=== PATIENT | female | born 1940 | race Caucasian/White ===

== ENCOUNTER 2019-05-27 16:48 | Inpatient (IN) | payer MEDICARE, OTHER ==
[~2019-05-27] VITALS: Ht 149.9 cm; Wt 71.2 kg
[2019-05-27] VITALS (23 sets, daily range): BP systolic 75–147; BP diastolic 32–101
[2019-05-27] MEDS ORDERED: IV NORMAL SALINE 1,000ML 1,000 ML IV SCH (17:01)
--- NOTE | 2019-05-27 17:19 | PHYS DOC ---
Past History Past Medical History: Arthritis, Depression, Hypertension, Hypothyroid, Other Additional Past Medical Histor: maligant neoplasm of breast Past Surgical History: Appendectomy, Cholecystectomy, Tonsillectomy, Other Additional Past Surgical Histo: bariatric surgery; partial right mastectomy Additional Alcohol Information: glass wine with dinner Drug Use: None Social History Narrative: hx of THC use Adult General Chief Complaint Chief Complaint: RAPID HEART RATE HPI HPI Patient is an 79-year-old female who resents with complaint of palpitations that started earlier today. She states that she has been having some intermittent palpitations over the last week or so. She states that today it was more severe and she was feeling lightheaded. Patient states that she went home from gym where she was feeling the palpitations and checked her heart rate and found it to be in the 120s. She states that she then went to see her doctor. Her provider had performed an EKG and sent patient as the emergency room. She denies any chest pain but does admit to the palpitations, stating that it feels like her heart rate is rapid. She admits to lightheadedness. She denies any shortness of breath. She also denies any fever.[] Review of Systems Review of Systems Constitutional: Denies fever or chills [] Respiratory: Denies cough or shortness of breath [] Cardiovascular: No additional information not addressed in HPI [] GI: Denies abdominal pain, nausea, vomiting, bloody stools or diarrhea [] Integument: Denies rash or skin lesions [] Neurologic: Denies headache, focal weakness or sensory changes [] All other systems were reviewed and found to be within normal limits, except as documented in this note. Current Medications Current Medications Current Medications Medications (Trade) Dose Ordered Sig/Mingo Start Time Stop Time Status Last Admin Dose Admin Diltiazem HCl (Cardizem Iv Push) 10 mg 1X ONCE 05/27/19 17:30 05/27/19 17:31 Sodium Chloride 1,000 ml @ 1,000 mls/hr Q1H 05/27/19 17:01 05/27/19 18:00 Allergies Allergies Allergies Coded Allergies Type Severity Reaction Last Updated Verified No Known Drug Allergies 05/27/19 No Physical Exam Physical Exam Constitutional: Well developed, well nourished, no acute distress, non-toxic appearance. [] HENT: Normocephalic, atraumatic, bilateral external ears normal, oropharynx moist, no oral exudates, nose normal. [] Eyes: PERRLA, EOMI, conjunctiva normal, no discharge. [] Neck: Normal range of motion, no tenderness, supple, no stridor. [] Cardiovascular: Markedly tachycardic rate with irregular rhythm[] Lungs & Thorax: Bilateral breath sounds clear to auscultation [] Abdomen: Bowel sounds normal, soft, no tenderness. [] Skin: Warm, dry, no erythema, no rash. [] Extremities: No tenderness, no cyanosis, no clubbing, ROM intact, no edema. [] Neurologic: Alert and oriented X 3, no focal deficits noted. [] Current Patient Data Vital Signs Vital Signs Date Time Temp Pulse Resp B/P (MAP) Pulse Ox O2 Delivery O2 Flow Rate FiO2 05/27/19 16:57 98.5 143 17 96 Room Air EKG EKG EKG demonstrates atrial fibrillation with rapid ventricular response with rate of 133.[] Radiology/Procedures Radiology/Procedures [] Course & Med Decision Making Course & Med Decision Making Pertinent Labs and Imaging studies reviewed. (See chart for details) [] Dragon Disclaimer Dragon Disclaimer This electronic medical record was generated, in whole or in part, using a voice recognition dictation system. Departure Departure: Impression: Primary Impression: Atrial fibrillation with rapid ventricular response Disposition: ADMITTED INPATIENT Admitting Physician: Timur Garcia Condition: IMPROVED Referrals: NEREIDA DE LA ROSA MD (PCP) CAREY DAWSON Jr. DO May 27, 2019 17:19
[2019-05-27 17:26] LABS: BASO # 0.1 x10^3/uL (0.0-0.2); BASO % 1 % (0-3); EOS # 0.2 x10^3/uL (0.0-0.7); EOS % 4 % (0-3); HEMATOCRIT 38.5 % (36.0-47.0); HEMOGLOBIN 12.9 g/dL (12.0-15.5); LYMPH # 1.7 x10^3/uL (1.0-4.8); LYMPH % 29 % (24-48); MEAN CORPUSCULAR HEMOGLOBIN 32 pg (25-35); MEAN CORPUSCULAR HGB CONC 34 g/dL (31-37); MEAN CORPUSCULAR VOLUME 96 fL (79-100); MONO # 0.7 x10^3/uL (0.0-1.1); MONO % 12 % (0-9); NEUT # 3.2 x10^3uL (1.8-7.7); NEUT % 55 % (31-73); PLATELET COUNT 211 x10^3/uL (140-400); RED BLOOD COUNT 3.99 x10^6/uL (3.50-5.40); WHITE BLOOD COUNT 5.9 x10^3/uL (4.0-11.0)
[2019-05-27] MEDS ORDERED: dilTIAZem 25 MG/5 ML VIAL IVP ONE ×2 (17:30→18:00)
[2019-05-27] MEDS ORDERED: IV NORMAL SALINE 100ML 100 ML ONE (17:36)
[2019-05-27 17:45] LABS: ALBUMIN 3.2 g/dL (3.4-5.0); ALBUMIN/GLOBULIN RATIO 0.9 (1.0-1.7); CALCIUM 8.6 mg/dL (8.5-10.1); CREATININE 0.9 mg/dL (0.6-1.0); GFR 60.2; MAGNESIUM 1.8 mg/dL (1.8-2.4); POTASSIUM 4.2 mmol/L (3.5-5.1); TOTAL BILIRUBIN 0.8 mg/dL (0.2-1.0); TOTAL PROTEIN 6.8 g/dL (6.4-8.2)
[2019-05-27] MEDS ORDERED: dilTIAZem VIAL 125 MG in IV DEXTROSE 5% 100 ML IV ONE (18:00)
--- NOTE | 2019-05-27 18:00 | RAD ---
Exam: Chest one view INDICATION: Palpitations TECHNIQUE: Frontal view of the chest Comparisons: None FINDINGS: The cardiomediastinal silhouette and pulmonary vessels are within normal limits. The lung and pleural spaces are clear. IMPRESSION: No acute cardiopulmonary process. Electronically signed by: Grisel Mares MD (05/27/2019 5:57 PM) [facility]
[2019-05-27] MEDS ORDERED: IV DEXTROSE 5% 100 ML IV ONE (18:03)
[2019-05-27 18:12] LABS: BILIRUBIN,URINE NEG (NEG); CLARITY,URINE CLEAR; COLOR,URINE YELLOW; GLUCOSE,URINE NEG (NEG)
[2019-05-27 18:13] LABS: BACTERIA,URINE 0 /HPF (0-FEW); NITRITE,URINE NEG (NEG); SQUAMOUS EPITHELIAL CELL,UR OCC /LPF; UROBILINOGEN,URINE 0.2 mg/dL (0.2 mg/dL); WBC,URINE OCC /HPF (0-4)
[2019-05-27] MEDS ORDERED: MULT1TAB52 PO (19:52)
[2019-05-27] MEDS ORDERED: LEVO100T5 PO (19:52)
[2019-05-27] MEDS ORDERED: UBID100C26 PO (19:52)
[2019-05-27] MEDS ORDERED: CETI10TA22 PO (19:52)
[2019-05-27] MEDS ORDERED: IRON1TAB2 PO (19:52)
[2019-05-27] MEDS ORDERED: CHOL500016 PO (19:52)
[2019-05-27] MEDS ORDERED: FISH12002 PO (19:52)
[2019-05-27] MEDS ORDERED: CALC0.5C8 PO (19:52)
[2019-05-27] MEDS ORDERED: CALCITONIN-SALMON NAS (19:52)
[2019-05-27] MEDS ORDERED: B12/1TAB PO (19:52)
[2019-05-27] MEDS ORDERED: FLUO40CA9 PO (19:52)
[2019-05-28] VITALS (36 sets, daily range): BP systolic 90–131; BP diastolic 40–85
--- NOTE | 2019-05-28 04:02 | EKG ---
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
[2019-05-28] MEDS: dilTIAZem VIAL 125 MG in IV DEXTROSE 5% 100 ML IV PRN ×2 (05:06→17:43)
[2019-05-28] MEDS: APIXABAN 2.5 MG TABLET PO SCH ×2 (13:22→20:32)
--- NOTE | 2019-05-28 14:11 | PDOC2 ---
CONSULT Date of Admission DATE: 05/28/19 TIME: 14:11 Reason for Consult: Atrial fibrillation Referring Physician: Dr. Garcia Chief Complaint Palpitations Source: Chart review, Patient Problem List Problems Medical Problems: (1) Atrial fibrillation with rapid ventricular response Status: Acute History of Present Illness 79-year-old female presented with intermittent episodes of palpitations for the last one to two weeks. She was found to be in atrial fibrillation with rapid ventricular response at PCPs office and admitted for further management. She stated that she felt lightheaded yesterday prior to presentation but denied any chest pain, orthopnea/PND or elana syncope. She denied any previous history of cardiac arrhythmias. Past Medical History Hypertension Hypothyroidism Depression Osteoarthritis Past Surgical History Appendectomy Cholecystectomy Tonsillectomy Bariatric surgery Mastectomy Family History Negative for premature coronary disease Social History Patient admitted to social intake of wine but denied any smoking or drug abuse Current Medications Current Medications Diltiazem HCl (Cardizem Iv Push) 10 mg 1X ONCE IVP Last administered on 05/27/19at 17:16; Start 05/27/19 at 17:30; Stop 05/27/19 at 17:31; Status DC Sodium Chloride 1,000 ml @ 1,000 mls/hr Q1H IV Last administered on 05/27/19at 17:15; Start 05/27/19 at 17:01; Stop 05/27/19 at 18:00; Status DC Sodium Chloride 100 ml @ As Directed STK-MED ONCE .ROUTE ; Start 05/27/19 at 17:36; Stop 05/27/19 at 17:37; Status DC Diltiazem HCl (Cardizem) 125 mg STK-MED ONCE IV ; Start 05/27/19 at 17:37; Stop 05/27/19 at 17:37; Status DC Diltiazem HCl (Cardizem Iv Push) 10 mg 1X ONCE IVP Last administered on 05/27/19at 18:01; Start 05/27/19 at 18:00; Stop 05/27/19 at 18:01; Status DC Diltiazem HCl 125 mg/Dextrose 125 ml @ 5 mls/hr 1X ONCE IV Last administered on 05/27/19at 18:03; Start 05/27/19 at 18:00; Stop 05/28/19 at 18:59 Dextrose 100 ml @ As Directed STK-MED ONCE IV ; Start 05/27/19 at 18:03; Stop 05/27/19 at 18:03; Status DC Diltiazem HCl 125 mg/Dextrose 125 ml @ 5 mls/hr CONT PRN IV SEE I/O RECORD Last administered on 05/28/19at 05:06; Start 05/27/19 at 21:45 Apixaban (Eliquis) 2.5 mg BID PO Last administered on 05/28/19at 13:22; Start 05/28/19 at 13:30 Active Scripts Active Reported Calcitriol 0.5 Mcg Capsule 1 Cap PO DAILYWSUP Coq-10 (Ubidecarenone) 100 Mg Capsule 300 Mg PO DAILYWSUP Zyrtec (Cetirizine Hcl) 10 Mg Tablet 10 Mg PO DAILYWSUP Foltx Tablet (B12/Levomefolate Calcium/B-6) 1 Each Tablet 1 Each PO WEEKLY [place] 3-6-9 1,200 mg Softgel (Fish Oil/Borage/Flax/Om3,6,9#1) 1,200 Mg Capsule 1,200 Mg PO DAILYWSUP Vitamin D3 (Cholecalciferol (Vitamin D3)) 5,000 Unit Tablet 5,000 Unit PO DAILYWSUP Ferralet 90 Dual-Iron Tablet (Iron, Carb & Gluc/Fa/B12/C/Dss) 1 Each Tablet 1 Each PO DAILYWSUP Multivitamins (Multivitamin) 1 Each Tablet 1 Each PO DAILYWSUP Prozac (Fluoxetine Hcl) 40 Mg Capsule 40 Mg PO DAILYWSUP Levothyroxine Sodium 100 Mcg Tablet 100 Mcg PO DAILYAC [Calcitonin-[place]] 200 Spr 200 ANAYELI DAILY Allergies: Coded Allergies: No Known Drug Allergies (Unverified , 05/27/19) PSYCHOLOGICAL ROS: No: Hallucinations Eyes: No: Loss of vision HEENT: No: Epistaxis Respiratory: No: Hemoptysis Cardiovascular: yes: Palpitations; No: Chest Pain Gastrointestinal: No: Vomiting Genitourinary: No: [place] Neurological: YES: Dizziness; No: Seizures Skin: No: Rash General: Alert, Oriented X3 HEENT: Atraumatic, PERRLA Lungs: Clear to auscultation Heart: Other (heart rate is irregular) Abdomen: Soft Extremities: Other (trace edema) Psych/Mental Status: Mood NL VITALS Vital Signs Date Time Temp Pulse Resp B/P (MAP) Pulse Ox O2 Delivery O2 Flow Rate FiO2 05/28/19 14:04 101 20 101/60 (74) 94 Room Air 05/28/19 11:00 98.3 Labs Laboratory Tests Test 05/27/19 17:10 05/27/19 17:40 White Blood Count 5.9 x10^3/uL (4.0-11.0) Red Blood Count 3.99 x10^6/uL (3.50-5.40) Hemoglobin 12.9 g/dL (12.0-15.5) Hematocrit 38.5 % (36.0-47.0) Mean Corpuscular Volume 96 fL (79-100) Mean Corpuscular Hemoglobin 32 pg (25-35) Mean Corpuscular Hemoglobin Concent 34 g/dL (31-37) Red Cell Distribution Width 13.0 % (11.5-14.5) Platelet Count 211 x10^3/uL (140-400) Neutrophils (%) (Auto) 55 % (31-73) Lymphocytes (%) (Auto) 29 % (24-48) Monocytes (%) (Auto) 12 % (0-9) Eosinophils (%) (Auto) 4 % (0-3) Basophils (%) (Auto) 1 % (0-3) Neutrophils # (Auto) 3.2 x10^3uL (1.8-7.7) Lymphocytes # (Auto) 1.7 x10^3/uL (1.0-4.8) Monocytes # (Auto) 0.7 x10^3/uL (0.0-1.1) Eosinophils # (Auto) 0.2 x10^3/uL (0.0-0.7) Basophils # (Auto) 0.1 x10^3/uL (0.0-0.2) Sodium Level 140 mmol/L (136-145) Potassium Level 4.2 mmol/L (3.5-5.1) Chloride Level 107 mmol/L (98-107) Carbon Dioxide Level 23 mmol/L (21-32) Anion Gap 10 (6-14) Blood Urea Nitrogen 29 mg/dL (7-20) Creatinine 0.9 mg/dL (0.6-1.0) Estimated GFR (Cockcroft-Gault) 60.2 BUN/Creatinine Ratio 32 (6-20) Glucose Level 87 mg/dL (70-99) Calcium Level 8.6 mg/dL (8.5-10.1) Magnesium Level 1.8 mg/dL (1.8-2.4) Total Bilirubin 0.8 mg/dL (0.2-1.0) Aspartate Amino Transf (AST/SGOT) 24 U/L (15-37) Alanine Aminotransferase (ALT/SGPT) 25 U/L (14-59) Alkaline Phosphatase 106 U/L (46-116) Troponin I Quantitative < 0.017 ng/mL (0-0.055) CY-Hzw-W-Type Natriuretic Peptide 1878 pg/mL (0-449) Total Protein 6.8 g/dL (6.4-8.2) Albumin 3.2 g/dL (3.4-5.0) Albumin/Globulin Ratio 0.9 (1.0-1.7) Thyroid Stimulating Hormone (TSH) 3.267 uIU/mL (0.358-3.740) Urine Collection Type Void Urine Color Yellow Urine Clarity Clear Urine pH 6.5 Urine Specific [place] 1.015 Urine Protein Neg (NEG-TRACE) Urine Glucose (UA) Neg mg/dL (NEG) Urine Ketones (Stick) Neg mg/dL (NEG) Urine Blood Mod (NEG) Urine Nitrite Neg (NEG) Urine Bilirubin Neg (NEG) Urine Urobilinogen Dipstick 0.2 mg/dL (0.2 mg/dL) Urine Leukocyte Esterase Neg (NEG) Urine RBC 6-10 /HPF (0-2) Urine WBC Occ /HPF (0-4) Urine Squamous Epithelial Cells Occ /LPF Urine Bacteria 0 /HPF (0-FEW) Assessment/Plan 1. Atrial fibrillation with rapid ventricular response, newly diagnosed. Heart rate improving with Cardizem drip. We will titrate for better rate control. Start eliquis for stroke prophylaxis. BNP elevated probably from rapid ventricular response. Chest x-ray and physical exam not consistent with congestive heart failure. Check 2-D echo to assess LV function and Lexiscan nuclear stress test to rule out ischemia probably as an outpatient. Plan for cardioversion in 3-4 weeks as an outpatient. 2. Hypertension: Controlled 3. Hypothyroidism: On levo thyroxine Thank you for your consultation. YOLANDA MCGEE MD May 28, 2019 14:11
--- NOTE | 2019-05-28 15:06 | HP ---
ADMIT DATE: 05/27/2019 HISTORY OF PRESENT ILLNESS: The patient is an 79-year-old female patient who was seen at her primary care physician's office and she started complaining of palpitation that started earlier yesterday morning. She stated that she has been having some intermittent palpitation over the last week or so. She stated that at the day of admission, she has more severe, was feeling lightheaded, but denied any chest pain or shortness of breath. She states she went home from gym where she was feeling palpitation. They checked her heart rate and was found to be high at 125 beats per minute. From there, she went to her primary care physician. Her provider performed an EKG that showed that she was in atrial fibrillation with rapid ventricular response and was sent to the Emergency Room, and she was started on a Cardizem drip and was admitted for further evaluation and treatment. PAST MEDICAL HISTORY: Significant for hyperlipidemia, hypothyroidism, and generalized osteoarthritis. She has also morbid obesity. PAST SURGICAL HISTORY: Significant for cholecystectomy, gastric bypass surgery, appendectomy. She has bilateral cataract extraction, tonsillectomy, partial mastectomy, esophagogastroduodenoscopy, and colonoscopy. ALLERGIES: She has no known drug allergies. MEDICATIONS: She is currently on following medications: She is on cetirizine 10 mg once a day, Ferralet dual-iron tablet 1 tablet once a day with supper, fluoxetine 40 mg daily, levothyroxine sodium 100 mcg once a day, multivitamin tablet once a day, calcitriol 0.5 mcg once a day, cholecalciferol for vitamin D3 5000 international unit once a day, multivitamin 1 tablet once a day, fish oil 1200 mg daily, CoQ10 100 mg daily, and calcitonin salmon 200 mcg nasal spray one spray to each nostril once a day. FAMILY HISTORY: Her sister at age of 70 of breast cancer. She has a half-sister and a half-brother, all healthy. Father at age of 35, apparently committing suicide and mother at age 79 because of lymphoma. SOCIAL HISTORY: She is , has 1 son and her daughter because of complication of autoimmune disease. She quit smoking in 1979. She drinks wine occasionally. 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 REVIEW OF SYSTEMS: The patient denied any blurring of vision. She has bilateral cataract extraction, but denied any glaucoma or macular degeneration. She has bilateral hearing aids. Denied any stuffy nose or nosebleed. Denied any sore throat, sore tongue, toothache, hoarseness of voice, or difficulty swallowing. Denied any nausea, vomiting, diarrhea, or constipation. Denied any hematemesis, melena, or hematochezia. Denied any dysuria, frequency, or hematuria. She does have urinary incontinence, but denied any chest pain or shortness of breath. Did complain of palpitation and lightheadedness. She is also known to have vertigo. PHYSICAL EXAMINATION: GENERAL: On arrival to the Emergency Room, she was somewhat tachypneic, but no pallor, jaundice, cyanosis, or thyromegaly. No jugular venous distention. No lower limb edema. VITAL SIGNS: Her heart rate was 143, blood pressure was 135/66, temperature was 98.5, respiratory rate was 17, and oxygen saturation was 96%. HEAD, EYES, EARS, NOSE, AND THROAT: Normocephalic, atraumatic. NECK: Supple. HEART: Showed normal first and second heart sounds. No gallop or murmur. CHEST: Clear to auscultation. No crepitation or rhonchi. ABDOMEN: Distended, soft, and nontender. NEUROLOGIC: She was awake, alert, responding appropriately. All cranial nerves intact. EXTREMITIES: She moves extremities without difficulty. She ambulates without assistance or assistive devices. LABORATORY AND DIAGNOSTIC DATA: Her lab work on admission showed a white cell count 5900, hemoglobin 13, hematocrit 39, MCV 96, and platelet count 211,000 with normal manual differential. Her chemistry showed a serum sodium 140, potassium 4.2, chloride 107, bicarbonate 23, anion gap of 10, BUN 29, creatinine 0.9, estimated GFR was 60 mL per minute, glucose was 87, calcium was 8.6, and magnesium was 1.8. Total bilirubin, AST, ALT, alkaline phosphatase were normal. Her beta-natriuretic peptide was 1178. First set of cardiac enzymes showed troponin to be less than 0.017. Total protein was 6.8, albumin was 3.2. TSH was 3.267. Urinalysis was essentially unremarkable. Her EKG showed that she was in atrial fibrillation with rapid ventricular response with heart rates at the time of 133 beats per minute. Her chest x-ray showed that cardiomediastinal silhouette and pulmonary vessels are within normal limits. The lungs and pleural spaces are clear. ASSESSMENT AND PLAN: The patient was admitted with new-onset atrial fibrillation with rapid ventricular response. She was started on Cardizem drip and we did consult the or rn to assist with her management. She did receive a bolus of Cardizem initially at 10 mg in 1000 mL of fluid. TAMMIE GALEAS MD DR: MAL/carolina JOB#: [id number] / [id number]
[2019-05-28] MEDS: GLUC PO SCH (17:00)
[2019-05-28] MEDS: DSS PO SCH (17:00)
[2019-05-28] MEDS: CALCITRIOL 0.25 MCG CAPSULE PO SCH (17:00)
[2019-05-28] MEDS: B12 PO SCH (17:00)
[2019-05-28] MEDS: IRON CARB PO SCH (17:00)
[2019-05-28] MEDS: [UNRECOGNIZED DRUG - OTHER] PO SCH (17:00)
[2019-05-28] MEDS: OMEGA-3 FATTY ACIDS/FISH OIL 1,000 MG CAPSULE. PO SCH (17:35)
[2019-05-28] MEDS: FLUoxetine HCL 20 MG CAPSULE PO SCH (17:35)
[2019-05-28] MEDS: UBIDECARENONE 50 MG CAPSULE. PO SCH (17:35)
[2019-05-28] MEDS: MULTIVITAMIN with MINERAL TABLET. PO SCH (17:38)
[2019-05-28] MEDS: CHOLECALCIFEROL (VITAMIN D3) 1,000 UNIT TABLET PO SCH (17:38)
[2019-05-28] MEDS: CETIRIZINE HCL 10 MG TABLET PO SCH (17:39)
[2019-05-29] VITALS (22 sets, daily range): BP systolic 95–140; BP diastolic 45–77
[2019-05-29] MEDS: dilTIAZem VIAL 125 MG in IV DEXTROSE 5% 100 ML IV PRN (05:28)
--- NOTE | 2019-05-29 05:34 | EKG ---
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
[2019-05-29] MEDS: LEVOTHYROXINE 100 MCG TABLET PO SCH (07:25)
[2019-05-29 07:36] LABS: HEMATOCRIT 41.4 % (36.0-47.0); HEMOGLOBIN 13.9 g/dL (12.0-15.5); RED BLOOD COUNT 4.3 x10^6/uL (3.50-5.40); RED CELL DISTRIBUTION WIDTH 12.8 % (11.5-14.5); WHITE BLOOD COUNT 6.3 x10^3/uL (4.0-11.0)
[2019-05-29 07:47] LABS: CALCIUM 8.8 mg/dL (8.5-10.1); CREATININE 0.7 mg/dL (0.6-1.0); GFR 80.5; POTASSIUM 4.2 mmol/L (3.5-5.1)
[2019-05-29] MEDS: CALCITONIN SALMON NAS SCH (09:00)
[2019-05-29] MEDS: APIXABAN 2.5 MG TABLET PO SCH ×2 (09:13→20:28)
[2019-05-29] MEDS ORDERED: DIGOXIN IV 500 MCG/2 ML AMPUL. ONE (11:37)
[2019-05-29] MEDS ORDERED: DIGOXIN IV 500 MCG/2 ML AMPUL. IV ONE (12:00)
--- NOTE | 2019-05-29 12:17 | PDOC ---
PROGRESS NOTES Diagnosis Problem Problems Medical Problems: (1) Atrial fibrillation with rapid ventricular response Status: Acute Assessment 1. Atrial fibrillation with rapid ventricular response, newly diagnosed. Heart rate improved with Cardizem drip but still slightly elevated. Change this to by mouth and add digoxin for better rate control. Continue eliquis for stroke pr ophylaxis. BNP elevated probably from rapid ventricular response. Chest x-ray and physical exam not consistent with congestive heart failure. Check 2-D echo to assess LV function and Lexiscan nuclear stress test to rule out ischemia probably as an outpatient. Plan for cardioversion in 3-4 weeks as an outpatient. 2. Hypertension: Controlled 3. Hypothyroidism: On levo thyroxine Subjective No new complaints. Denied any chest pain or palpitations. Objective Vital Signs Date Time Temp Pulse Resp B/P (MAP) Pulse Ox O2 Delivery O2 Flow Rate FiO2 05/29/19 11:30 99 20 104/73 (83) 94 Room Air 05/28/19 19:57 98.3 Intake and Output 05/29/19 07:00 Intake Total 1400 ml Balance 1400 ml Intake Oral 1400 ml # Voids 5 # Bowel Movements 1 Abdomen: Soft, No tenderness Heart: Other (heart rate is irregular) Extremities: No edema General: Alert, No acute distress HEENT: Atraumatic Lungs: Clear to auscultation Neck: Supple Neuro: Normal speech Psych/Mental Status: Mood NL Review of Relevant I have reviewed the following items gerson (where applicable) has been applied. Labs Laboratory Tests Test 05/29/19 07:25 White Blood Count 6.3 x10^3/uL (4.0-11.0) Red Blood Count 4.30 x10^6/uL (3.50-5.40) Hemoglobin 13.9 g/dL (12.0-15.5) Hematocrit 41.4 % (36.0-47.0) Mean Corpuscular Volume 96 fL (79-100) Mean Corpuscular Hemoglobin 32 pg (25-35) Mean Corpuscular Hemoglobin Concent 34 g/dL (31-37) Red Cell Distribution Width 12.8 % (11.5-14.5) Platelet Count 223 x10^3/uL (140-400) Sodium Level 140 mmol/L (136-145) Potassium Level 4.2 mmol/L (3.5-5.1) Chloride Level 106 mmol/L (98-107) Carbon Dioxide Level 27 mmol/L (21-32) Anion Gap 7 (6-14) Blood Urea Nitrogen 20 mg/dL (7-20) Creatinine 0.7 mg/dL (0.6-1.0) Estimated GFR (Cockcroft-Gault) 80.5 Glucose Level 98 mg/dL (70-99) Calcium Level 8.8 mg/dL (8.5-10.1) Medications Current Medications Medications (Trade) Dose Ordered Sig/Mingo Route PRN Reason Start Time Stop Time Status Last Admin Dose Admin Apixaban (Eliquis) 2.5 mg BID PO 05/28/19 13:30 05/29/19 09:13 Cetirizine HCl (ZyrTEC) 10 mg DAILYWSUP PO 05/28/19 17:00 05/28/19 17:39 Levothyroxine Sodium (Synthroid) 100 mcg DAILY06 PO 05/29/19 07:30 05/29/19 07:25 Vitamin D (Vitamin D3) 5,000 unit DAILYWSUP PO 05/28/19 17:00 05/28/19 17:38 Fish Oil (Fish Oil) 1,000 mg DAILYWSUP PO 05/28/19 17:00 05/28/19 17:35 Fluoxetine HCl (PROzac) 40 mg DAILYWSUP PO 05/28/19 17:00 05/28/19 17:35 Multivitamins/ Calcium (Thera-M Plus) 1 tab DAILYWSUP PO 05/28/19 17:00 05/28/19 17:38 Coenzyme Q10 (Coenzyme Q10) 300 mg DAILYWSUP PO 05/28/19 17:00 05/28/19 17:35 Vitals/I & O Vital Signs Date Time Temp Pulse Resp B/P (MAP) Pulse Ox O2 Delivery O2 Flow Rate FiO2 05/29/19 11:30 99 20 104/73 (83) 94 Room Air 05/28/19 19:57 98.3 I & O 05/28/19 05/28/19 05/29/19 15:00 23:00 07:00 Intake Total 800 ml 600 ml 0 ml Balance 800 ml 600 ml 0 ml YOLANDA MCGEE MD May 29, 2019 12:17
[2019-05-29] MEDS: DIGOXIN 125 MCG TABLET PO SCH (12:41)
[2019-05-29] MEDS: MULTIVITAMIN with MINERAL TABLET. PO SCH (16:39)
[2019-05-29] MEDS: CHOLECALCIFEROL (VITAMIN D3) 1,000 UNIT TABLET PO SCH (16:39)
[2019-05-29] MEDS: OMEGA-3 FATTY ACIDS/FISH OIL 1,000 MG CAPSULE. PO SCH (16:39)
[2019-05-29] MEDS: CETIRIZINE HCL 10 MG TABLET PO SCH (16:39)
[2019-05-29] MEDS: FLUoxetine HCL 20 MG CAPSULE PO SCH (16:40)
[2019-05-29] MEDS: UBIDECARENONE 50 MG CAPSULE. PO SCH (16:40)
[2019-05-29] MEDS: CALCITRIOL 0.25 MCG CAPSULE PO SCH (16:40)
[2019-05-29] MEDS: IRON CARB PO SCH (17:00)
[2019-05-29] MEDS: DSS PO SCH (17:00)
[2019-05-29] MEDS: GLUC PO SCH (17:00)
[2019-05-29] MEDS: B12 PO SCH (17:00)
[2019-05-29] MEDS: [UNRECOGNIZED DRUG - OTHER] PO SCH (17:00)
[2019-05-29] MEDS ORDERED: AMIODARONE 150 MG/3 ML VIAL IVP ONE (22:32)
[2019-05-29] MEDS ORDERED: AMIODARONE 900 MG in IV DEXTROSE 5% 500 ML IV PRN (23:00)
[2019-05-29] MEDS ORDERED: AMIODARONE 150 MG in IV DEXTROSE 5% 100 ML IVP ONE (23:00)
[2019-05-30] VITALS (24 sets, daily range): BP systolic 100–137; BP diastolic 40–83
--- NOTE | 2019-05-30 02:57 | PN ---
DATE: 05/29/2019 SUBJECTIVE: The patient is sitting at the edge of the bed comfortably in no apparent respiratory distress. Her heart rate continued to be somewhat suboptimally controlled. She continued to have some exertional dyspnea on exertion. She was started on digoxin as well as diltiazem after stopping her Cardizem drip. OBJECTIVE: GENERAL: When I saw her this afternoon, she looked somewhat pale, but no jaundice, cyanosis or thyromegaly. No jugular venous distension. No lower limb edema. VITAL SIGNS: Her heart rate was 101, blood pressure was 126/63, temperature was 97, respiratory rate was 20, and oxygen saturation was 95%. HEAD, EYES, EARS, NOSE AND THROAT: Showed normocephalic, atraumatic. NECK: Supple. HEART: Showed normal first and second heart sounds. No gallop or murmur. CHEST: Clear to auscultation. No crepitation or rhonchi. ABDOMEN: Distended, soft, nontender. NEUROLOGIC: She is awake, alert, responding appropriately. All cranial nerves are intact. She moves extremities without difficulty. She ambulates without assistance or assistive devices. Her intake was 1400, no output was recorded. LABORATORY DATA: Her lab work this morning showed a white cell count 6300, hemoglobin 13.9, hematocrit 41, MCV 96, and platelet count 223,000. Serum sodium was 140, potassium 4.2, chloride 106, bicarbonate 27, anion gap of 7, BUN 20, creatinine 0.7, estimated GFR was 80 mL per minute. Her glucose was 98, calcium was 8.8. Urinalysis was essentially unremarkable. ASSESSMENT: 1. Atrial fibrillation with rapid ventricular response, newly diagnosed, heart rate continued to be slightly elevated. She is now on digoxin and Cardizem. 2. Hypertension. 3. Hypothyroidism, both clinically and biochemically euthyroid. PLAN: To continue with Cardizem and digoxin. Continue with apixaban. We will evaluate her again tomorrow and if her heart rate is better controlled, the patient can be discharged home to follow with her primary care physician and Cardiology team as an outpatient. TAMMIE GALEAS MD DR: MAL/carolina JOB#: [id number] / [id number]
--- NOTE | 2019-05-30 03:35 | EKG ---
[address] [address] Test Date: 2019-05-29 Test Time: 22:33:26 Pat Name: RAMBO ROBERTSON Department: Room: [facility] 1 Gender: F Brand Executive: : 1940 Requested By: TAMMIE GALEAS Order Number: [id number] Reading MD: Jeremy Samson MD Measurements Intervals [place] Rate: 110 P: [place]: QRS: 17 QRSD: 76 T: 48 QT: 338 QTc: 463 Interpretive Statements ATRIAL FIBRILLATION WITH RVR NON-SPECIFIC ST/T CHANGES Electronically Signed On 06-13-2019 9:15:54 MAKE UP WORKER by Jeremy Samson MD
[2019-05-30] MEDS ORDERED: AMIODARONE 900 MG in IV DEXTROSE 5% 500 ML IV PRN (05:00)
[2019-05-30] MEDS: LEVOTHYROXINE 100 MCG TABLET PO SCH (06:39)
[2019-05-30] MEDS: DIGOXIN 125 MCG TABLET PO SCH (08:11)
[2019-05-30] MEDS: APIXABAN 2.5 MG TABLET PO SCH ×2 (08:11→21:02)
[2019-05-30] MEDS: CALCITONIN SALMON NAS SCH (08:11)
--- NOTE | 2019-05-30 09:38 | PDOC ---
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 Intake and Output 05/30/19 07:00 Intake Total 1100 ml Balance 1100 ml Intake Oral 1100 ml # Voids 8 Laboratory Labs Laboratory Tests Test 05/29/19 07:25 White Blood Count 6.3 x10^3/uL (4.0-11.0) Red Blood Count 4.30 x10^6/uL (3.50-5.40) Hemoglobin 13.9 g/dL (12.0-15.5) Hematocrit 41.4 % (36.0-47.0) Mean Corpuscular Volume 96 fL (79-100) Mean Corpuscular Hemoglobin 32 pg (25-35) Mean Corpuscular Hemoglobin Concent 34 g/dL (31-37) Red Cell Distribution Width 12.8 % (11.5-14.5) Platelet Count 223 x10^3/uL (140-400) Sodium Level 140 mmol/L (136-145) Potassium Level 4.2 mmol/L (3.5-5.1) Chloride Level 106 mmol/L (98-107) Carbon Dioxide Level 27 mmol/L (21-32) Anion Gap 7 (6-14) Blood Urea Nitrogen 20 mg/dL (7-20) Creatinine 0.7 mg/dL (0.6-1.0) Estimated GFR (Cockcroft-Gault) 80.5 Glucose Level 98 mg/dL (70-99) Calcium Level 8.8 mg/dL (8.5-10.1) Physical Exams HEENT: Neck Supple W Full Motion Chest: Symmetric Lungs: Clear to Auscultation Heart: S1S2, irregularly irregular (AFIB- rate 110-125 at rest) Abdomen: Soft N/T Extremities: No Edema Neurology: alert, oriented, follow commands Assessment Assessment 1. AFIB with RVR, new diagnosis. HR remains elevated despite Cardizem, digoxin, and Amiodarone gtt 2. Hypertension: Controlled 3. Hypothyroidism Recommendations Eliquis for stroke prophylaxis Echo to assess LV systolic function Will plan for GWEN guided CV tomorrow at [place] if patient remains in AFIB intermittently elevated rates Consider outpatient [facility] Supportive care KALANI VARGAS MD 05/30/19 2241: CARDIO Progress Notes Plan Plan Pt. seen and examined. Agree with above [facility] [employer] [facility] note. Continue dig/dilt and amiodarone. Continue anticoagulation Discussed r/b/a to gwen/cvn. She is amenable to transfer to [place] tomorrow if no improvement for gwen/cvn. JV Martino APRN May 30, 2019 09:38 KALANI VARGAS MD May 30, 2019 22:41
--- NOTE | 2019-05-30 14:57 | CARD ---
MR#: [id number] Date of Study: 05/30/2019 Ordering Physician: JV ALAS, Referring Physician: JV ALAS, Tech: Ada Mathis APPROVED REPORT EXAM: Two-dimensional and M-mode echocardiogram with Doppler and color Doppler. Other Information Quality : AverageHR: 112bpm Technically limited study due to Rapid heart rate INDICATION Atrial Fibrillation RISK FACTORS Hypertension 2D DIMENSIONS RVDd2.6 (2.9-3.5cm)Left Atrium(2D)4.1 (1.6-4.0cm) IVSd1.0 (0.7-1.1cm)Aortic Root(2D)2.7 (2.0-3.7cm) LVDd4.6 (3.9-5.9cm)LVOT Diameter2.0 (1.8-2.4cm) PWd0.9 (0.7-1.1cm)LVDs2.7 (2.5-4.0cm) FS (%) 40.0 %SV67.8 ml LVEF(%)70.8 (>50%) Aortic Valve AoV Peak Arnold.170.4cm/sAoV VTI26.6cm AO Peak GR.11.6mmHgLVOT Peak Arnold.116.4cm/s LVOT VTI 19.84cmAO Mean GR.6mmHg MARCI (VMAX)2.93ek8ELF (VTI)2.45cm2 Pulmonary Valve PV Peak Ylgqphjg121.7cm/sPV Peak Grad.4mmHg Tricuspid Valve TR P. Tqzwnljn784wn/sRAP KIMCJBLP8yrEl TR Peak Gr.41byYkQUPE35kfNj Pulmonary Vein S1 Mzyxeswv28.1cm/sD2 Zsqbhazm71.0cm/s LEFT VENTRICLE The left ventricle is normal size. There is borderline concentric left ventricular hypertrophy. The l eft ventricular systolic function is normal. The Ejection Fraction is 55-60%. There is normal LV segm ental wall motion. Diastology indeterminate. RIGHT VENTRICLE The right ventricle is normal size. There is normal right ventricular wall thickness. The right ventr icular systolic function is normal. ATRIA The left atrium is moderately dilated. The right atrium size is normal. The interatrial septum is int act with no evidence for an atrial septal defect or patent foramen ovale as noted on 2-D or Doppler i maging. AORTIC VALVE The aortic valve is calcified but opens well. Doppler and Color Flow revealed no significant aortic r egurgitation. There is no significant aortic valvular stenosis. MITRAL VALVE The mitral valve is normal in structure and function. There is no evidence of mitral valve prolapse. There is no mitral valve stenosis. Doppler and Color-flow revealed trace mitral regurgitation. TRICUSPID VALVE The tricuspid valve is normal in structure and function. Doppler and Color Flow revealed trace tricus pid regurgitation with an estimated PAP of 35 mmHg. There is no tricuspid valve stenosis. PULMONIC VALVE The pulmonic valve is not well visualized. Doppler and Color Flow revealed no pulmonic valvular regur gitation. GREAT VESSELS The aortic root is normal in size. The IVC is dilated. PERICARDIAL EFFUSION There is no evidence of significant pericardial effusion. Critical Notification Critical Value: No <Conclusion> The left ventricular systolic function is normal. The Ejection Fraction is 55-60%. There is normal LV segmental wall motion. The left atrium is moderately dilated. Trace mitral regurgitation. Trace tricuspid regurgitation with an estimated PAP of 35 mmHg. There is no evidence of significant pericardial effusion. Signed by : Devonte Cleveland, Electronically Approved : 05/30/2019 14:57:21
[2019-05-30] MEDS: GLUC PO SCH (17:00)
[2019-05-30] MEDS: DSS PO SCH (17:00)
[2019-05-30] MEDS: IRON CARB PO SCH (17:00)
[2019-05-30] MEDS: B12 PO SCH (17:00)
[2019-05-30] MEDS: [UNRECOGNIZED DRUG - OTHER] PO SCH (17:00)
[2019-05-30] MEDS: CETIRIZINE HCL 10 MG TABLET PO SCH (18:03)
[2019-05-30] MEDS: FLUoxetine HCL 20 MG CAPSULE PO SCH (18:03)
[2019-05-30] MEDS: CALCITRIOL 0.25 MCG CAPSULE PO SCH (18:04)
[2019-05-30] MEDS: OMEGA-3 FATTY ACIDS/FISH OIL 1,000 MG CAPSULE. PO SCH (18:04)
[2019-05-30] MEDS: CHOLECALCIFEROL (VITAMIN D3) 1,000 UNIT TABLET PO SCH (18:04)
[2019-05-30] MEDS: UBIDECARENONE 50 MG CAPSULE. PO SCH (18:04)
[2019-05-30] MEDS: MULTIVITAMIN with MINERAL TABLET. PO SCH (18:04)
[2019-05-31] VITALS (9 sets, daily range): BP systolic 107–132; BP diastolic 44–70
--- NOTE | 2019-05-31 04:14 | PN ---
DATE: 05/30/2019 SUBJECTIVE: The patient is sitting slightly propped up in bed, in no apparent distress. On questioning her, denied any complaint. She continues to be on amiodarone drip as well as digoxin and diltiazem. Her AFib continued to be poorly controlled and according to Dr. Samson, she will continue on amiodarone drip tonight and if she continues to be in AFib with rapid ventricular response, she will be transferred to [place] for a BRYAN and cardioversion. PHYSICAL EXAMINATION: GENERAL: When I examined her this afternoon, she looked pale, but no jaundice, cyanosis or thyromegaly. No jugular venous distension. No lower limb edema. VITAL SIGNS: Her heart rate was 90, blood pressure was 118/70, temperature was 98, respiratory rate was 20, and oxygen saturation was 95%. HEAD, EYES, EARS, NOSE AND THROAT: Showed normocephalic, atraumatic. NECK: Supple. CARDIAC: Normal first and second heart sounds. No gallop or murmur. CHEST: Clear to auscultation. No crepitation or rhonchi. ABDOMEN: Distended, soft, nontender. No guarding or rigidity. No organomegaly. All hernial orifice intact. Bowel sounds normal. NEUROLOGIC: She was awake, alert, responding appropriately. All cranial nerves intact. She moves extremities without difficulty. LABORATORY DATA: Showed a white cell count 6300, hemoglobin 13, hematocrit 41, MCV 96, and platelet count of 232,000. Her chemistry showed a serum sodium 140, potassium 4.2, chloride 106, bicarbonate 27, anion gap of 7, BUN 20, creatinine 0.7, estimated GFR was 80 mL per minute. Her glucose was 98, calcium was 8.8. Serum triglycerides were 67, total cholesterol 200, LDL cholesterol was 10, VLDL was 13, HDL cholesterol was 77, the ratio was 2. TSH was normal at 3.267. ASSESSMENT AND PLAN: New onset atrial fibrillation with rapid ventricular response. Heart rate remains elevated despite Cardizem, digoxin, amiodarone, hypertension, and hypothyroidism. Plan is to continue with Eliquis. She apparently has had an echocardiogram done, which showed that her left ventricular systolic function is normal with ejection fraction of 55-60%. She has normal left ventricular segmental wall motion, left atrium is moderately dilated, trace mitral regurgitation, trace tricuspid regurgitation with an estimated pulmonary artery pressure of 35 mmHg. No evidence of significant pericardial effusion. The plan is to continue with amiodarone drip tonight and if the heart rate continued to be poorly controlled, she will be transferred to [facility] for BRYAN and cardioversion. TAMMIE GALEAS MD DR: MAL/carolina JOB#: [id number] / [id number]
[2019-05-31] MEDS: LEVOTHYROXINE 100 MCG TABLET PO SCH (05:42)
[2019-05-31] MEDS: CALCITONIN SALMON NAS SCH (08:43)
[2019-05-31] MEDS: GLUC PO SCH (08:43)
[2019-05-31] MEDS: DSS PO SCH (08:43)
[2019-05-31] MEDS: IRON CARB PO SCH (08:43)
[2019-05-31] MEDS: B12 PO SCH (08:43)
[2019-05-31] MEDS: [UNRECOGNIZED DRUG - OTHER] PO SCH (08:43)
--- NOTE | 2019-05-31 08:55 | PDOC ---
CARDIO Progress Notes Date & Time Date of Service DATE: 05/31/19 TIME: 08:55 Time of Evaluation 08:55 Subjective Notes Right arm pain secondary to IV infiltration Vitals Vitals Vital Signs Date Time Temp Pulse Resp B/P (MAP) Pulse Ox O2 Delivery O2 Flow Rate FiO2 05/31/19 08:42 Room Air 05/31/19 08:41 119 14 117/54 (75) 93 05/31/19 00:23 98.1 Weight Weight [ ] Input and Output I.O. Intake and Output 05/31/19 07:00 Intake Total 1276.4 ml Balance 1276.4 ml Intake Oral 900 ml IV Total 376.4 ml # Voids 7 Physical Exams HEENT: Neck Supple W Full Motion Chest: Symmetric Lungs: Clear to Auscultation Heart: S1S2, irregularly irregular (AFIB- rate 110-125 at rest) Abdomen: Soft N/T Extremities: No Edema Neurology: alert, oriented, follow commands Assessment Assessment 1. AFIB with RVR, new diagnosis. HR remains elevated despite Cardizem, digoxin, and Amiodarone gtt. Echo with preserved LV systolic function 2. Hypertension: Controlled 3. Hypothyroidism Recommendations Eliquis for stroke prophylaxis Continue Cardizem, Dig, Amiodarone Will transfer to [facility] for BRYAN guided CV this afternoon as AFIB remains uncontrolled. Consider outpatient [facility] Supportive care JV ALAS APRN May 31, 2019 08:55
[2019-05-31] MEDS: APIXABAN 2.5 MG TABLET PO SCH (09:39)
[2019-05-31] MEDS: DIGOXIN 125 MCG TABLET PO SCH (09:39)
[2019-06-04] MEDS ORDERED: B12 PO SCH (09:00)
[2019-06-04] MEDS ORDERED: B6 PO SCH (09:00)
[2019-06-04] MEDS ORDERED: LEVOMEFOLATE CALCIUM PO SCH (09:00)
== END 2019-05-31 10:25 | disposition short-term general hospital (02) | DRG 309 ==
LOC: ER 16:48 → ICU 18:46
PROVIDERS: ADMIT Internal Medicine; ATTEND Internal Medicine
DX: I48.91 Unspecified atrial fibrillation (principal); E44.0 Moderate protein-calorie malnutrition; E03.9 Hypothyroidism, unspecified; I10 Essential (primary) hypertension; F32.9 Major depressive disorder, single episode, unspecified; E66.01 Morbid (severe) obesity due to excess calories; M15.9 Polyosteoarthritis, unspecified; E78.5 Hyperlipidemia, unspecified; I08.1 Rheumatic disorders of both mitral and tricuspid valves; Z68.31 Body mass index [BMI] 31.0-31.9, adult; Z85.3 Personal history of malignant neoplasm of breast; Z90.49 Acquired absence of other specified parts of digestive tract; Z90.11 Acquired absence of right breast and nipple; Z98.84 Bariatric surgery status; Z98.42 Cataract extraction status, left eye; Z98.41 Cataract extraction status, right eye; Z80.7 Family history of other malignant neoplasms of lymphoid, hematopoietic and related tissues; Z80.3 Family history of malignant neoplasm of breast; Z87.891 Personal history of nicotine dependence
CPT/HCPCS: 36415; 71045; 80048; 80053; 80061; 81001; 83735; 83880; 84443; 84484; 85025; 85027; 93005; 93306; 96361; 96365; 96376; J0282; J1160; J3490; 99285-25; J7030

== ENCOUNTER → 2019-08-10 | Outpatient (CLI) | payer MEDICARE, OTHER ==
[2019-05-31 10:15] VITALS: BP 107/44
[~2019-08-10] MED LIST: B12/1TAB PO; CALC0.5C8 PO; CALCITONIN-SALMON NAS; CETI10TA24 PO; CHOL500016 PO; FISH12002 PO; FLUO40CA9 PO; IRON1TAB2 PO; LEVO100T5 PO; MULT1TAB52 PO; UBID100C26 PO
--- NOTE | 2019-08-10 14:14 | RAD ---
EXAM: Dual energy x-ray absorptiometry (DEXA). HISTORY: Postmenopausal female presents for osteoporosis screening. COMPARISON: None. TECHNIQUE: Dual energy x-ray absorptiometry of the lumbar spine and right hip was performed. Calculation of bone mineral density based on standard deviations above or below the expected young adult normal value (T-score) was completed. FINDINGS: The average bone mineral density in the 1st through 4th lumbar vertebrae is 1.038 g/cmxcm, corresponding with a T-score of -1.2. The average total bone mineral density in the right hip is 0.603 g/cmxcm, corresponding with a T-score of -2.9. IMPRESSION: 1. Osteoporosis measured at the right hip. 2. Osteopenia measured at the lumbar spine. Note: Definitions established by the World Health Organization: 1. Normal: T-score is -1.0 or above. 2. Osteopenia: T-score is between -1.0 and -2.5 . 3. Osteoporosis: T-score is -2.5 or below. Electronically signed by: Anabella Wesley MD (08/10/2019 2:11 PM) [place] [id number]
== END | disposition home or self-care (01) ==
LOC: DXRAD 12:43
PROVIDERS: ATTEND Family Medicine
DX: M81.0 Age-related osteoporosis without current pathological fracture (principal)
CPT/HCPCS: 77080

== ENCOUNTER → 2019-12-06 | Outpatient (CLI) | payer MEDICARE, OTHER ==
[2019-05-31 10:15] VITALS: BP 107/44
--- NOTE | 2019-12-06 12:05 | RAD ---
EXAM: Chest, 2 views. HISTORY: Long-term amiodarone use. COMPARISON: 05/27/2019 FINDINGS: 2 views of the chest are obtained. There is no infiltrate, pleural effusion or pneumothorax. There is a cardiac event monitor overlying the left anterior chest wall. IMPRESSION: No acute pulmonary finding. Electronically signed by: Anabella Wesley MD (12/06/2019 12:02 PM) [id number]
[2019-12-06 12:32] LABS: ALT (SGPT) 85 U/L (14-59); AST (SGOT) 51 U/L (15-37)
== END | disposition home or self-care (01) ==
LOC: RAD 11:35
PROVIDERS: ATTEND Internal Medicine Cardiovascular Disease
DX: Z79.899 Other long term (current) drug therapy (principal)
CPT/HCPCS: 36415; 71046; 84436; 84443; 84450; 84460; 84481

== ENCOUNTER → 2020-01-26 | Outpatient (CLI) | payer MEDICARE, OTHER ==
[2019-05-31 10:15] VITALS: BP 107/44
[~2020-01-26] MED LIST changes: +MULT-445 PO; -MULT1TAB52 PO
[2020-01-26 09:05] LABS: BASO % 1 % (0-3); EOS # 0.1 x10^3/uL (0.0-0.7); EOS % 2 % (0-3); HEMATOCRIT 39.7 % (36.0-47.0); HEMOGLOBIN 13.3 g/dL (12.0-15.5); LYMPH # 1.3 x10^3/uL (1.0-4.8); LYMPH % 25 % (24-48); MEAN CORPUSCULAR HEMOGLOBIN 33 pg (25-35); MEAN CORPUSCULAR HGB CONC 34 g/dL (31-37); MEAN CORPUSCULAR VOLUME 98 fL (79-100); MONO # 0.5 x10^3/uL (0.0-1.1); MONO % 8 % (0-9); NEUT # 3.5 x10^3uL (1.8-7.7); NEUT % 65 % (31-73); PLATELET COUNT 224 x10^3/uL (140-400); RED BLOOD COUNT 4.06 x10^6/uL (3.50-5.40); RED CELL DISTRIBUTION WIDTH 13.7 % (11.5-14.5); WHITE BLOOD COUNT 5.4 x10^3/uL (4.0-11.0)
[2020-01-26 09:23] LABS: ALBUMIN 3.2 g/dL (3.4-5.0); ALBUMIN/GLOBULIN RATIO 0.8 (1.0-1.7); CALCIUM 8.5 mg/dL (8.5-10.1); CREATININE 1.2 mg/dL (0.6-1.0); GFR 43.2; MAGNESIUM 2.2 mg/dL (1.8-2.4); POTASSIUM 4.5 mmol/L (3.5-5.1)
[2020-01-26 14:12] LABS: FREE T4 1.87 ng/dL (0.76-1.46); THYROID STIM HORMONE (TSH) 1.708 uIU/mL (0.358-3.740)
== END ==
LOC: LAB 08:15
PROVIDERS: ATTEND Internal Medicine Cardiovascular Disease
DX: I48.0 Paroxysmal atrial fibrillation (principal)
CPT/HCPCS: 36415; 80053; 83735; 84439; 84443; 85025

== ENCOUNTER → 2020-05-10 | Outpatient (CLI) | payer MEDICARE, OTHER ==
[2019-05-31 10:15] VITALS: BP 107/44
[~2020-05-10] MED LIST changes: -CETI10TA24 PO; +CETI10TA74 PO
[2020-05-10 13:15] LABS: ALT (SGPT) 42 U/L (14-59); AST (SGOT) 36 U/L (15-37)
== END ==
LOC: LAB 10:33
PROVIDERS: ATTEND Internal Medicine Cardiovascular Disease
DX: Z79.899 Other long term (current) drug therapy (principal)
CPT/HCPCS: 36415; 84436; 84443; 84450; 84460; 84481

== ENCOUNTER 2020-07-03 15:01 | Emergency (ER) | payer MEDICARE, OTHER ==
[~2020-07-03] VITALS: Ht 149.9 cm; Wt 66.3 kg
[2020-07-03] MEDS ORDERED: LIDOCAINE/EPI/TETRACAINE TOPICAL GEL 3 ML. TP ONE (15:15)
[2020-07-03 15:20] VITALS: BP 153/81
--- NOTE | 2020-07-03 15:51 | RAD ---
EXAM: CT Head without IV contrast INDICATION: Reason: fall from step stool, head laceration, takes plavix / Spl. Instructions: / History: TECHNIQUE: Multi-detector row CT images were obtained of the head without the use of IV contrast. All CT scans performed at this facility utilize dose optimization techniques as appropriate to the exam, including the following: Automated exposure control and adjustment of the mA and/or KV according to patient size (this includes techniques or standardized protocols for targeted exams where dose is indication/reason for exam). COMPARISON: None FINDINGS: BRAIN PARENCHYMA: No evidence of acute intraparenchymal hemorrhage or infarct. Generalized parenchymal volume loss and white matter low density compatible chronic ischemic microvascular change is present. VENTRICLES & EXTRA-AXIAL SPACES: Ventricles are within normal limits. Basilar cisterns are patent. No pathologic extra-axial fluid collection or mass. ORBITS: Orbital contents are unremarkable. SINUSES: Visualized paranasal sinuses and mastoid air cells are clear. OSSEOUS & SOFT TISSUES: Calvarium and skull base are intact. There is soft tissue swelling of the vertex best appreciated on the pickle maker image but visible on the last 3 images of the axial series eccentric to the right. IMPRESSION: Scalp contusion without associated skull fracture or acute intracranial pathology EXAM: CT Cervical Spine without IV contrast INDICATION: Reason: fall from step stool, head laceration, takes plavix / Spl. Instructions: / History: TECHNIQUE: Multi-detector row CT images were obtained through the cervical spine without the use of IV contrast. Post-processing sagittal and coronal reconstructed images were obtained for interpretation. All CT scans performed at this facility utilize dose optimization techniques as appropriate to the exam, including the following: Automated exposure control and adjustment of the mA and/or KV according to patient size (this includes techniques or standardized protocols for targeted exams where dose is indication/reason for exam). COMPARISON: None FINDINGS: CRANIOCERVICAL JUNCTION: Unremarkable. ALIGNMENT: Alignment is within normal limits. OSSEOUS: No evidence of fracture or bone destruction. DISC SPACES: Minimal anterolisthesis of C3 on C4 and of C6 on C7. Mild disc space narrowing most conspicuous at C5-C6 and C6-C7. FACET JOINTS: Mild multilevel facet degenerative change. SPINAL CANAL: Unremarkable. NEUROFORAMINA: Unremarkable. SOFT TISSUES: Unremarkable. IMPRESSION: Mild multilevel C-spine degenerative changes but no acute traumatic findings in the cervical spine on CT. Electronically signed by: Ashley Day MD (07/03/2020 3:47 PM) [id number]
--- NOTE | 2020-07-03 16:11 | PHYS DOC ---
Past History Past Medical History: A-Fib, Other Additional Past Medical Histor: osteoporosis Past Surgical History: Appendectomy, Cholecystectomy, Gastric Bypass, Tonsillectomy, Other Additional Past Surgical Histo: partial mastectomy Alcohol Use: None Drug Use: None General Adult EDM: Chief Complaint: LACERATION/AVULSION HPI: HPI: Patient is a 80-year-old female who presents to the emergency department with complaints of a laceration to the top of her head and right wrist pain after falling off of a step stool afternoon. Patient states she had stepped up on the stepstool to change the month on her calendar and she fell when coming down. She denies any loss of consciousness, nausea, vomiting, vision changes, neck pain, or back pain. Patient denies any pain in her lower extremities. She is unsure when her last tetanus shot was. She denies any chest pain, dizziness, or syncope. Currently, she rates her pain a 5 out of 10 on the pain scale, she denies any alleviating factors. Patient states she takes Plavix. Review of Systems: Review of Systems: Complete ROS is negative unless otherwise noted in HPI. Current Medications: Current Meds: Current Medications Medications (Trade) Dose Ordered Sig/Mingo Start Time Stop Time Status Last Admin Dose Admin Lidocaine/ Epinephrine (Let (Vptd-Vklnayh-Guyni) Gel) 3 ml 1X ONCE 07/03/20 15:15 07/03/20 15:20 DC Allergies: Allergies: Allergies Coded Allergies Type Severity Reaction Last Updated Verified No Known Drug Allergies 05/27/19 No Physical Exam: PE: See Above Constitutional: Well developed, well nourished, no acute distress, non-toxic appearance. [] HENT: Normocephalic, bilateral external ears normal, nose normal; laceration to posterior scalp, no crepitus or obvious bony abnormality to school. Eyes: PERRLA, EOMI, conjunctiva normal, no discharge. [] Neck: Normal range of motion, nontender, supple, no stridor. [] Cardiovascular:Heart rate regular rhythm Lungs & Thorax: Respirations even and unlabored, no retractions, no respiratory distress Skin: Warm, dry, no erythema, no rash; 2 cm laceration noted to posterior scalp without visible foreign body, no active bleeding at this time.. [] Extremities: Right wrist: Lateral 1+ edema and tenderness to palpation without crepitus or obvious deformity, no cyanosis, ROM limited due to pain, 2+ radial pulse Neurologic: Alert and oriented X 3, no focal deficits noted. [] Psychologic: Affect normal, judgement normal, mood normal. [] Current Patient Data: Vital Signs: Vital Signs Date Time Temp Pulse Resp B/P (MAP) Pulse Ox O2 Delivery O2 Flow Rate FiO2 07/03/20 15:20 98.2 57 16 153/81 (105) 97 Room Air EKG: EKG: [] Radiology/Procedures: Radiology/Procedures: PROCEDURE: CT HEAD AND CERVICAL SPINE WO EXAM: CT Head without IV contrast INDICATION: Reason: fall from step stool, head laceration, takes plavix / Spl. Instructions: / History: TECHNIQUE: Multi-detector row CT images were obtained of the head without the use of IV contrast. All CT scans performed at this facility utilize dose optimization techniques as appropriate to the exam, including the following: Automated exposure control and adjustment of the mA and/or KV according to patient size (this includes techniques or standardized protocols for targeted exams where dose is indication/reason for exam). COMPARISON: None FINDINGS: BRAIN PARENCHYMA: No evidence of acute intraparenchymal hemorrhage or infarct. Generalized parenchymal volume loss and white matter low density compatible chronic ischemic microvascular change is present. VENTRICLES & EXTRA-AXIAL SPACES: Ventricles are within normal limits. Basilar cisterns are patent. No pathologic extra-axial fluid collection or mass. ORBITS: Orbital contents are unremarkable. SINUSES: Visualized paranasal sinuses and mastoid air cells are clear. OSSEOUS & SOFT TISSUES: Calvarium and skull base are intact. There is soft tissue swelling of the vertex best appreciated on the senior administrative assistant image but visible on the last 3 images of the axial series eccentric to the right. IMPRESSION: Scalp contusion without associated skull fracture or acute intracranial pathology EXAM: CT Cervical Spine without IV contrast INDICATION: Reason: fall from step stool, head laceration, takes plavix / Spl. Instructions: / History: TECHNIQUE: Multi-detector row CT images were obtained through the cervical spine without the use of IV contrast. Post-processing sagittal and coronal reconstructed images were obtained for interpretation. All CT scans performed at this facility utilize dose optimization techniques as appropriate to the exam, including the following: Automated exposure control and adjustment of the mA and/or KV according to patient size (this includes techniques or standardized protocols for targeted exams where dose is indication/reason for exam). COMPARISON: None FINDINGS: CRANIOCERVICAL JUNCTION: Unremarkable. ALIGNMENT: Alignment is within normal limits. OSSEOUS: No evidence of fracture or bone destruction. DISC SPACES: Minimal anterolisthesis of C3 on C4 and of C6 on C7. Mild disc space narrowing most conspicuous at C5-C6 and C6-C7. FACET JOINTS: Mild multilevel facet degenerative change. SPINAL CANAL: Unremarkable. NEUROFORAMINA: Unremarkable. SOFT TISSUES: Unremarkable. IMPRESSION: Mild multilevel C-spine degenerative changes but no acute traumatic findings in the cervical spine on CT. Electronically signed by: Ashley Day MD (07/03/2020 3:47 PM) [id number] PROCEDURE: WRIST 3V RIGHT EXAM: Right wrist, 3 views. HISTORY: Pain. Fall. COMPARISON: None. FINDINGS: 3 views of the right wrist are obtained. There is a nondisplaced fracture of the distal radial metaphysis. There is a prominent scapholunate joint space, not clearly within limits to suggest scapholunate ligament injury. There is severe first carpometacarpal joint space narrowing with subchondral sclerosis and spurring. There is suspected bone demineralization. IMPRESSION: 1. Nondisplaced distal radial metaphyseal fracture. 2. Severe first carpal metacarpal joint osteoarthritis. Laceration Repair by me: Anesthesia: topical LET Location: Scalp Tendon/Joint/Nerves: No injury Foreign body: None detected after copious irrigation and exploration with NS and chlorhexidine scrub Technique: 4 oanh Complexity: No subcutaneous sutures/mucosal repair/edge excision Post Closure Length: 2 cm Patient's bleeding was easily controlled in the department and there is no indication of anemia. No evidence of compartment syndrome, neurologic injury, vascular injury, open joint, tendon laceration, or foreign body. Patient is appropriate for outpatient follow up. [] Heart Score: Risk Factors: Risk Factors: DM, Current or recent (<one month) smoker, HTN, HLP, family history of CAD, obesity. Risk Scores: Score 0 - 3: 2.5% MACE over next 6 weeks - Discharge Home Score 4 - 6: 20.3% MACE over next 6 weeks - Admit for Clinical Observation Score 7 - 10: 72.7% MACE over next 6 weeks - Early Invasive Strategies Course & Med Decision Making: Course & Med Decision Making Pertinent Labs and Imaging studies reviewed. (See chart for details) [] Michael Disclaimer: Dragon Disclaimer: This electronic medical record was generated, in whole or in part, using a voice recognition dictation system. Departure Departure: Impression: Primary Impression: Scalp laceration Qualified Codes: S01.01XA - Laceration without foreign body of scalp, initial encounter Additional Impressions: Fall from stool Need for Tdap vaccination Fracture of right distal radius Qualified Codes: S52.521A - Torus fracture of lower end of right radius, initial encounter for closed fracture Disposition: 01 DC HOME SELF CARE/HOMELESS Condition: STABLE Referrals: NEREIDA DE LA ROSA MD (PCP) JEOVANNY HERNANDEZ MD Patient Instructions: Radius Fracture with Rehab-SportsMed, Staple Wound Closure, Pndl-zx-Vvoa, VIS, Tetanus, Diphtheria (Td); Tetanus, Diphtheria, Pertussis (Tdap) - CDC Additional Instructions: Keep the stapled area clean and dry. You may take Tylenol as needed for pain. Follow-up with your primary care doctor, or return to the emergency room in 5-7 days to have the sutures removed, sooner if you develop signs of infection including: redness, warmth, drainage, or a fever. Recommend application of ice, elevation, and rest of affected extremity. Wear the splint and sling that was placed until follow up appointment with Dr. Guillermina schmidt. AMADA ACOSTA APRN Jul 03, 2020 16:10
--- NOTE | 2020-07-03 16:56 | RAD ---
EXAM: Right wrist, 3 views. HISTORY: Pain. Fall. COMPARISON: None. FINDINGS: 3 views of the right wrist are obtained. There is a nondisplaced fracture of the distal radial metaphysis. There is a prominent scapholunate joint space, not clearly within limits to suggest scapholunate ligament injury. There is severe first carpometacarpal joint space narrowing with subchondral sclerosis and spurring. There is suspected bone demineralization. IMPRESSION: 1. Nondisplaced distal radial metaphyseal fracture. 2. Severe first carpal metacarpal joint osteoarthritis. Electronically signed by: Anabella Wesley MD (07/03/2020 4:53 PM) [facility]
[2020-07-03] MEDS ORDERED: DIPH,PERTUSS(ACELL),TET VAC/PF 0.5 ML SYRINGE. VAX IM ONE (17:30)
== END 2020-07-03 17:45 | disposition home or self-care (01) ==
LOC: ER 15:01
DX: S52.501A Unspecified fracture of the lower end of right radius, initial encounter for closed fracture (principal); S01.01XA Laceration without foreign body of scalp, initial encounter; I48.91 Unspecified atrial fibrillation; W07.XXXA Fall from chair, initial encounter; Y93.89 Activity, other specified; Y92.89 Other specified places as the place of occurrence of the external cause; Y99.8 Other external cause status
CPT/HCPCS: 12001; 29125; 70450; 72125; 73110; 90471; 90715; 99285-25

== ENCOUNTER → 2020-10-12 | Outpatient (CLI) | payer MEDICARE, OTHER ==
--- NOTE | 2020-10-12 14:51 | RAD ---
EXAM: Lumbar spine, 3 views. HISTORY: Sciatica. COMPARISON: None. FINDINGS: 3 views of the lumbar spine are obtained. There is minimal lumbar levocurvature. There is m inimal grade 1 anterolisthesis of L5 on S1. There is minimal retrolisthesis of L1 on L2. There is mul tilevel endplate remodeling. There is disc space narrowing at L2-L3. There is facet arthropathy predo minantly at L5-S1. There are incidental cholecystectomy clips and anastomotic sutures within the left upper abdomen. IMPRESSION: 1. Multilevel degenerative change involving the lumbar spine, described above. 2. No acute osseous finding. Electronically signed by: Anabella Wesley MD (10/12/2020 2:48 PM) [id number]
--- NOTE | 2020-10-12 14:51 | RAD ---
EXAM: Left knee, 3 views. HISTORY: Pain. COMPARISON: None. FINDINGS: 3 views of the left knee are obtained. There is moderate tricompartmental joint space narro wing with degenerative subchondral sclerosis and spurring. There is no acute fracture, dislocation or subluxation. There is no joint effusion. 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 Electronically signed by: Anabella Wesley MD (10/12/2020 2:49 PM) [id number]
== END ==
LOC: RAD 14:05
PROVIDERS: ATTEND Family Medicine
DX: M17.12 Unilateral primary osteoarthritis, left knee (principal); M47.816 Spondylosis without myelopathy or radiculopathy, lumbar region
CPT/HCPCS: 72100; 73562

== ENCOUNTER → 2020-11-21 | Outpatient (CLI) | payer MEDICARE, OTHER ==
--- NOTE | 2020-11-21 14:29 | RAD ---
EXAMINATION: US DPLX VENOUS EXTREMITY LOWER LT (LOWER EXTREMITY VENOUS ULTRASOUND) CLINICAL HISTORY: Left lower extremity pain TECHNIQUE: Sonographic grayscale images obtained of the left lower extremity deep venous system with color flow Doppler, compression, and augmentation techniques as indicated. Images obtained and store d in a permanent archive. COMPARISON: None FINDINGS: No evidence of absent flow or incompressibility within the common femoral vein, femoral vein, or popl iteal vein. Visualized calf veins appear patent on limited evaluation. IMPRESSION: No evidence of left lower extremity DVT. Electronically signed by: Arsh Schwab DO (11/21/2020 2:27 PM) [id number]
== END ==
LOC: US 13:49
PROVIDERS: ATTEND Family Medicine
DX: M79.605 Pain in left leg (principal)
CPT/HCPCS: 93971

== ENCOUNTER 2021-03-23 09:17 | Observation (INO) | payer MEDICARE, OTHER ==
[~2021-03-23] VITALS: Ht 149.9 cm; Wt 69.0 kg
[2021-03-23] MEDS ORDERED: IV NORMAL SALINE 1,000ML 1,000 ML IV ONE (10:00)
[2021-03-23] MEDS ORDERED: dilTIAZem 25 MG/5 ML VIAL IVP ONE (10:00)
[2021-03-23 10:04] LABS: BASO # 0.1 x10^3/uL (0.0-0.2); BASO % 1 % (0-3); EOS # 0.3 x10^3/uL (0.0-0.7); EOS % 5 % (0-3); HEMATOCRIT 40.9 % (36.0-47.0); HEMOGLOBIN 13.7 g/dL (12.0-15.5); LYMPH # 1.6 x10^3/uL (1.0-4.8); LYMPH % 33 % (24-48); MEAN CORPUSCULAR HEMOGLOBIN 33 pg (25-35); MEAN CORPUSCULAR HGB CONC 34 g/dL (31-37); MEAN CORPUSCULAR VOLUME 98 fL (79-100); MONO # 0.5 x10^3/uL (0.0-1.1); MONO % 11 % (0-9); NEUT # 2.4 x10^3uL (1.8-7.7); NEUT % 49 % (31-73); PLATELET COUNT 221 x10^3/uL (140-400); RED BLOOD COUNT 4.18 x10^6/uL (3.50-5.40); RED CELL DISTRIBUTION WIDTH 13.3 % (11.5-14.5); WHITE BLOOD COUNT 4.9 x10^3/uL (4.0-11.0)
--- NOTE | 2021-03-23 10:04 | PHYS DOC ---
Past History Past Medical History: A-Fib, Other Additional Past Medical Histor: osteoporosis (BRYAN DAVIS APRN) Past Surgical History: Appendectomy, Cholecystectomy, Gastric Bypass, Tonsillectomy, Other Additional Past Surgical Histo: partial mastectomy (BRYAN DAVIS APRN) Alcohol Use: None Drug Use: None (BRYAN DAVIS APRN) General Adult EDM: Chief Complaint: Palpitations HPI: HPI: Patient is a 51-year-old female who presents to the ER for palpitations. Patient reports that she was sitting this morning when she felt her heart racing and checked her pulse and it was higher than what it normally is. Patient reports before she left her house her pulse was 170. Patient is also reporting mild lightheadedness. Patient denies chest pain, shortness of breath, syncope. Patient has a history of A. fib RVR has not had an episode since her ablation. Patient also has a history of hypothyroidism, edema, depression, and implantation of the watchman device. 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 (BRYAN DAVIS APRN) Review of Systems: Review of Systems: 14 body systems of the review of systems have been reviewed. See HPI for pertinent positive and negative responses, otherwise all other systems are negative, nonpertinent or noncontributory (BRYAN DAVIS APRN) Current Medications: Current Meds: Current Medications Medications (Trade) Dose Ordered Sig/Mingo Start Time Stop Time Status Last Admin Dose Admin Diltiazem HCl (Cardizem Iv Push) 20 mg 1X ONCE 03/23/21 10:00 03/23/21 10:01 UNV Sodium Chloride 1,000 ml @ 1,000 mls/hr 1X ONCE 03/23/21 10:00 03/23/21 10:59 (BRYAN DAVIS APRN) Allergies: Allergies: Allergies Coded Allergies Type Severity Reaction Last Updated Verified No Known Drug Allergies 05/27/19 No (BRYAN DAVIS APRN) Physical Exam: PE: Constitutional: Well developed, well nourished, no acute distress, non-toxic appearance. [] HENT: Normocephalic, atraumatic Eyes: PERRL, EOMI, conjunctiva normal, no discharge. [] Neck: Normal range of motion, no stridor Cardiovascular:Heart rate irregular and tachycardic rhythm, no murmur [] Lungs & Thorax: Bilateral breath sounds clear to auscultation [] Abdomen: Bowel sounds normal, soft, no tenderness, no masses, no pulsatile masses. [] Skin: Warm, dry, no erythema, no rash. [] Back: Normal range of motion Extremities: No tenderness, no cyanosis, no clubbing, ROM intact, 2+ pitting edema noted to bilateral lower extremities. Patient reports that is her baseline edema.. [] Neurologic: Alert and oriented X 3, normal motor function, normal sensory function, no focal deficits noted. [] Psychologic: Affect normal, judgement normal, mood normal. [] (BRYAN DAVIS APRN) Current Patient Data: Labs: Laboratory Tests Test 03/23/21 09:40 03/23/21 09:58 White Blood Count 4.9 x10^3/uL Red Blood Count 4.18 x10^6/uL Hemoglobin 13.7 g/dL Hematocrit 40.9 % Mean Corpuscular Volume 98 fL Mean Corpuscular Hemoglobin 33 pg Mean Corpuscular Hemoglobin Concent 34 g/dL Red Cell Distribution Width 13.3 % Platelet Count 221 x10^3/uL Neutrophils (%) (Auto) 49 % Lymphocytes (%) (Auto) 33 % Monocytes (%) (Auto) 11 % Eosinophils (%) (Auto) 5 % Basophils (%) (Auto) 1 % Neutrophils # (Auto) 2.4 x10^3uL Lymphocytes # (Auto) 1.6 x10^3/uL Monocytes # (Auto) 0.5 x10^3/uL Eosinophils # (Auto) 0.3 x10^3/uL Basophils # (Auto) 0.1 x10^3/uL Sodium Level 144 mmol/L Potassium Level 4.3 mmol/L Chloride Level 108 mmol/L Carbon Dioxide Level 26 mmol/L Anion Gap 10 Blood Urea Nitrogen 27 mg/dL Creatinine 0.8 mg/dL Estimated GFR (Cockcroft-Gault) 68.7 BUN/Creatinine Ratio 34 Glucose Level 100 mg/dL Calcium Level 8.6 mg/dL Total Bilirubin 0.7 mg/dL Aspartate Amino Transf (AST/SGOT) 29 U/L Alanine Aminotransferase (ALT/SGPT) 28 U/L Alkaline Phosphatase 141 U/L Troponin I Quantitative < 0.017 ng/mL Total Protein 7.1 g/dL Albumin 3.5 g/dL Albumin/Globulin Ratio 1.0 Urine Collection Type Unknown Urine Color Yellow Urine Clarity Clear Urine pH 5.5 Urine Specific [place] <=1.005 Urine Protein Neg Urine Glucose (UA) Neg mg/dL Urine Ketones (Stick) Neg mg/dL Urine Blood Small Urine Nitrite Neg Urine Bilirubin Neg Urine Urobilinogen Dipstick 0.2 mg/dL Urine Leukocyte Esterase Neg Urine RBC 1-2 /HPF Urine WBC Occ /HPF Urine Bacteria 0 /HPF Current Medications Medications (Trade) Dose Ordered Sig/Mingo Route PRN Reason Start Time Stop Time Status Last Admin Dose Admin Sodium Chloride 1,000 ml @ 1,000 mls/hr 1X ONCE IV 03/23/21 10:00 03/23/21 10:59 DC 03/23/21 10:26 Diltiazem HCl (Cardizem Iv Push) 20 mg 1X ONCE IVP 03/23/21 10:00 03/23/21 10:01 DC 03/23/21 10:27 Diltiazem HCl 125 mg/Sodium Chloride 125 ml @ 5 mls/hr CONT PRN IV SEE I/O RECORD 03/23/21 10:45 03/23/21 11:15 (BRYAN DAVIS GENERAL FARM MANAGER) EKG: EKG: EKG performed by ER staff at 09 34 shows A. fib with RVR at a rate of 140, no STEMI as read by Dr. Saha at 09 38 Repeat EKG performed at 1011 shows A. fib RVR with a rate of 134, no STEMI. Read by Dr. Saha at 1016. (BRYAN DAVIS GENERAL FARM MANAGER) Radiology/Procedures: Radiology/Procedures: PROCEDURE: PORTABLE CHEST 1V XR CHEST 1V CLINICAL INDICATIONS: Reason: palpitations COMPARISON: December 06, 2019. Findings: No acute lung infiltrate or pleural effusion or pulmonary edema or lung mass or pneumothorax is seen. A metallic device is seen overlying the left atrial auricle area. Cardiac monitoring device is seen within the left chest wall. The heart size, pulmonary vasculature, mediastinum and both jessica are otherwise unremarkable. IMPRESSION: No acute radiographic abnormality is seen. Electronically signed by: Gino Phillip MD (03/23/2021 10:55 AM) [id number] DICTATED AND SIGNED BY: GINO PHILLIP MD DATE: 03/23/21 1053 CC: NEREIDA DE LA ROSA MD; BRYAN DAVIS APRN ~MTH0 0 [] (BRYAN DAVIS APRN) Heart Score: C/O Chest Pain: No Risk Factors: Risk Factors: DM, Current or recent (<one month) smoker, HTN, HLP, family history of CAD, obesity. Risk Scores: Score 0 - 3: 2.5% MACE over next 6 weeks - Discharge Home Score 4 - 6: 20.3% MACE over next 6 weeks - Admit for Clinical Observation Score 7 - 10: 72.7% MACE over next 6 weeks - Early Invasive Strategies (BRYAN DAVIS APRN) Course & Med Decision Making: Course & Med Decision Making Pertinent Labs and Imaging studies reviewed. (See chart for details) Patient is an 81-year-old female being seen for palpitations. Patient is noted to be in A. fib RVR. Blood pressure stable at this time. Work-up in the ER consisted of blood work, EKG, chest x-ray. Patient was treated with fluids and 20 mg Cardizem IV push. Following IV push of Cardizem, patient's heart rate continued to be elevated at a rate of one twenty. Patient placed on a Cardizem infusion at 5 mg an hour due to patient's blood pressure being 100 systolic. Patient's chest x-ray is unremarkable. CBC unremarkable. Patient has mild elevation in her BUN. Urinalysis negative for any urinary tract infection. I discussed patient's case with Dr. Fonseca who agreed to admit the patient to the unit on the Cardizem drip. I discussed patient's findings with her and care plan and she is agreeable at this time. Care transferred at this time 1122. (BRYAN DAVIS APRN) Dragon Disclaimer: Dragon Disclaimer: This electronic medical record was generated, in whole or in part, using a voice recognition dictation system. (BRYAN DAVIS APRN) Attending Co-Sign The patient was seen and interviewed as well as examined at the bedside. The chart was reviewed. The case was discussed. Agree with the plan of care. (HERNAN SAHA DO) Departure Departure: Impression: Primary Impression: Atrial fibrillation with RVR Disposition: ADMITTED INPATIENT Admitting Physician: Fabio Fonseca (BRYAN DAVIS APRN) Condition: STABLE Referrals: NEREIDA DE LA ROSA MD (PCP) BRYAN DAVIS APRN Mar 23, 2021 10:04 HERNAN SAHA DO Mar 25, 2021 09:55
--- NOTE | 2021-03-23 10:09 | EKG ---
[address] [address] Test Date: 2021-03-23 Test Time: 09:34:42 Pat Name: RAMBO ROBERTSON Department: Room: Gender: F Senior Consulting Manager: : 1940 Requested By: BRYAN DAVIS Order Number: [id number] Reading MD: Measurements Intervals [place] Rate: 140 P: WI: QRS: -15 QRSD: 80 T: 100 QT: 306 QTc: 471 Interpretive Statements IRREGULAR RHYTHM, NO P-WAVE FOUND LEFTWARD AXIS CONSIDER LEFT VENTRICULAR HYPERTROPHY T ABNORMALITY IN LATERAL LEADS ABNORMAL ECG RI6.02 No previous ECG available for comparison
[2021-03-23 10:15] LABS: CALCIUM 8.6 mg/dL (8.5-10.1); CREATININE 0.8 mg/dL (0.6-1.0); GFR 68.7; POTASSIUM 4.3 mmol/L (3.5-5.1)
[2021-03-23 10:20] LABS: ALBUMIN 3.5 g/dL (3.4-5.0); TOTAL BILIRUBIN 0.7 mg/dL (0.2-1.0); TOTAL PROTEIN 7.1 g/dL (6.4-8.2)
[2021-03-23 10:24] LABS: BACTERIA,URINE 0 /HPF (0-FEW); BILIRUBIN,URINE NEG (NEG); CLARITY,URINE CLEAR; COLOR,URINE YELLOW; GLUCOSE,URINE NEG (NEG); NITRITE,URINE NEG (NEG); UROBILINOGEN,URINE 0.2 mg/dL (0.2 mg/dL); WBC,URINE OCC /HPF (0-4)
--- NOTE | 2021-03-23 10:37 | EKG ---
[address] [address] Test Date: 2021-03-23 Test Time: 10:11:43 Pat Name: RAMBO ROBERTSON Department: Room: Gender: F Head Cashier: : 1940 Requested By: BRYAN DAVIS Order Number: [id number] Reading MD: Measurements Intervals [place] Rate: 134 P: MA: QRS: -12 QRSD: 84 T: 65 QT: 284 QTc: 424 Interpretive Statements IRREGULAR RHYTHM, NO P-WAVE FOUND LEFTWARD AXIS LOW LIMB LEAD VOLTAGE NO SPECIFIC ECG ABNORMALITIES RI6.02 No previous ECG available for comparison
[2021-03-23] MEDS ORDERED: dilTIAZem VIAL 125 MG in IV NORMAL SALINE 100ML 100 ML IV PRN (10:45)
--- NOTE | 2021-03-23 10:57 | RAD ---
XR CHEST 1V CLINICAL INDICATIONS: Reason: palpitations COMPARISON: December 06, 2019. Findings: No acute lung infiltrate or pleural effusion or pulmonary edema or lung mass or pneumothora x is seen. A metallic device is seen overlying the left atrial auricle area. Cardiac monitoring devic e is seen within the left chest wall. The heart size, pulmonary vasculature, mediastinum and both hil a are otherwise unremarkable. IMPRESSION: No acute radiographic abnormality is seen. Electronically signed by: Braden Phillip MD (03/23/2021 10:55 AM) [id number]
[2021-03-23] MEDS: IV NORMAL SALINE 1,000ML 1,000 ML IV SCH ×2 (11:30→21:29)
[2021-03-23 14:10] VITALS: BP 137/74
[2021-03-23] MEDS ORDERED: GLUC-11 PO (15:02)
[2021-03-23] MEDS ORDERED: MAGN400C PO (15:02)
[2021-03-23] MEDS ORDERED: FURO20TA3 PO (15:02)
[2021-03-23] MEDS ORDERED: DILT180T7 PO (15:02)
[2021-03-23] MEDS ORDERED: FERR236T2 PO (15:02)
[2021-03-23] MEDS ORDERED: CHOL500021 PO (15:02)
[2021-03-23] MEDS ORDERED: ASPI-630 PO (15:02)
[2021-03-23 15:07] VITALS: BP 108/36
[2021-03-23 18:07] VITALS: BP 120/46
[2021-03-23] MEDS ORDERED: FUROSEMIDE 20 MG TABLET PO SCH (18:30)
[2021-03-23] MEDS ORDERED: CETIRIZINE HCL 10 MG TABLET PO SCH (18:30)
[2021-03-23 19:00] VITALS: BP 122/45
[2021-03-24] VITALS: BP 122/59
[2021-03-24] MEDS: IV NORMAL SALINE 1,000ML 1,000 ML IV SCH (05:31)
[2021-03-24 07:00] VITALS: BP 142/61
[2021-03-24 07:14] LABS: BASO % 1 % (0-3); EOS # 0.3 x10^3/uL (0.0-0.7); EOS % 7 % (0-3); HEMATOCRIT 38.8 % (36.0-47.0); LYMPH # 2.1 x10^3/uL (1.0-4.8); LYMPH % 46 % (24-48); MEAN CORPUSCULAR HEMOGLOBIN 33 pg (25-35); MEAN CORPUSCULAR HGB CONC 33 g/dL (31-37); MEAN CORPUSCULAR VOLUME 97 fL (79-100); MONO # 0.5 x10^3/uL (0.0-1.1); MONO % 11 % (0-9); NEUT # 1.6 x10^3uL (1.8-7.7); NEUT % 35 % (31-73); PLATELET COUNT 207 x10^3/uL (140-400); RED BLOOD COUNT 3.99 x10^6/uL (3.50-5.40); RED CELL DISTRIBUTION WIDTH 12.9 % (11.5-14.5); WHITE BLOOD COUNT 4.7 x10^3/uL (4.0-11.0)
[2021-03-24] MEDS ORDERED: LEVOTHYROXINE 100 MCG TABLET PO SCH (07:30)
[2021-03-24 07:32] LABS: ALBUMIN 3.2 g/dL (3.4-5.0); CALCIUM 8.4 mg/dL (8.5-10.1); CREATININE 0.8 mg/dL (0.6-1.0); GFR 68.7; POTASSIUM 3.8 mmol/L (3.5-5.1); TOTAL BILIRUBIN 0.9 mg/dL (0.2-1.0); TOTAL PROTEIN 6.3 g/dL (6.4-8.2)
[2021-03-24] MEDS ORDERED: ASPIRIN CHEWABLE 81 MG TABLET. PO SCH (09:00)
[2021-03-24 10:26] VITALS: BP 142/61
--- NOTE | 2021-03-24 10:50 | HP ---
ATTENDING PHYSICIAN: Dr. Fonseca. CHIEF COMPLAINT: Palpitation. HISTORY OF PRESENT ILLNESS: The patient is an 81-year-old female admitted with palpitations. She has had a history of paroxysmal atrial fibrillation. In July, she had a catheter ablation. Since that time, she has had a Watchman procedure. She sees a roofing supervisor and edging machine setter out of [facility]. She has been on Cardizem 180 mg daily. The factor that causes it, she was supposed not drink any alcohol, she went well for over a year, she had a glass of white wine the night before and developed the problem. In the ED, she was given a Cardizem bolus as well as a drip. By the time she came to the floor, she had already converted back to sinus rhythm. She was admitted overnight for observation. PAST MEDICAL HISTORY: Significant for paroxysmal atrial fibrillation with the procedures done. She has had cholecystectomy, gastric bypass surgery, tonsillectomy, appendectomy and a partial mastectomy. ALLERGIES: She has no known drug allergies. MEDICATIONS: Current medicines are reviewed. She takes Cardizem-CD 180 mg p.o. daily along with aspirin, B12, cetirizine, cholecalciferol, ferrous sulfate, Prozac 40 mg daily, Lasix, glucosamine, Synthroid, magnesium, multivitamin, and coenzyme CoQ10. SOCIAL HISTORY: She is a nonsmoker. Drinking history: Very minimal, just recent alcohol the night before. FAMILY HISTORY: One sister of breast cancer. Parents have , but of old age. She had 1 daughter of autoimmune disease. REVIEW OF SYSTEMS: Significant for the alcohol use the night before. No fever. No cough, congestion, COVID exposure, chest pain, palpitation. All other systems reviewed and turned to be negative. PHYSICAL EXAMINATION: GENERAL: When I saw her, this is a pleasant, middle-aged female who appears younger than her stated age. VITAL SIGNS: Showed a blood pressure 140/60, pulse is 66 and regular. She was afebrile, oxygen saturation 94% on room air. HEENT: Head is without trauma. Pupils are reactive. Sclerae nonicteric. Oropharynx clear. NECK: Supple, no bruits identified. LUNGS: Clear. CARDIOVASCULAR: Regular heart tones. No gallops. ABDOMEN: Soft. EXTREMITIES: Without edema. NEUROLOGIC: Focally intact. SKIN: Warm and dry. PERTINENT LABORATORY STUDIES: Hemoglobin on admission was 13.7 g/dL with a white count of 4900. Electrolytes all within normal range with a creatinine of 0.8 mg%. Initial cardiac enzymes were negative for coronary ischemia. Chest x-ray on admission was nondiagnostic without any acute intrapulmonary process. ASSESSMENT: 1. An 81-year-old female with paroxysmal atrial fibrillation, previous ablation therapy. 2. Hypertension. 3. Hypothyroidism, on replacement. PLAN: 1. Cardizem drip on admission. 2. We will try to convert it back to oral Cardizem. 3. Serial cardiac enzymes. SARAH/MOSES DR: Nisreen TID: [id number] CC: NEREIDA DE LA ROSA MD
--- NOTE | 2021-03-24 10:59 | DS ---
DATE OF DISCHARGE: 03/24/2021 ATTENDING PHYSICIAN: Dr. Fonseca. FINAL DISCHARGE DIAGNOSES: 1. Atrial fibrillation with rapid ventricular rate, converted. 2. Previous history of catheter ablation and Watchman procedure. 3. Hypothyroidism, on replacement. 4. Essential hypertension. HISTORY AND PHYSICAL: The patient is a very pleasant, active 81-year-old female with paroxysmal atrial fibrillation. In 07/2019, she had catheter ablation and eventually had a Watchman procedure. She has had a conversion back to sinus rhythm and was managed with low dose Cardizem. She had some white wine the night before, which caused her to go into atrial fibrillation with rapid ventricular rate. I explained to her that alcohol is a myocardial depressant and can cause it. She had not drank any alcohol up until this past a ride. She was started on Cardizem infusion. By the time she got to the floor, she already converted to a sinus rhythm. We had her overnight for serial enzymes and monitoring. PHYSICAL EXAMINATION: Please see the dictated note. PERTINENT LABORATORY AND X-RAY STUDIES: Chest x-ray was clear. CBC unremarkable. Chemistry panel unremarkable with normal electrolytes, BUN and creatinine. Cardiac enzymes were negative for coronary ischemia. COURSE IN THE HOSPITAL: The patient was admitted overnight, we had her on Cardizem. This was weaned off. We started her the next day on oral Cardizem at a slightly higher dose of 240 mg. She did well. Vital signs were stable. Heart rate was regular. She will follow up with Dr. De La Rosa and her speech language therapist. Therefore, she is discharged home with some minor changes. The only thing we did differently was to increase her Cardizem CD from 180 mg to 240 mg p.o. daily. The rest of her discharge meds including her vitamins are unchanged. She will continue her aspirin, B12, cetirizine, vitamin D3, vitamin D2, diltiazem 240, ferrous gluconate, fish oil, Prozac 40 mg daily, Lasix 20 mg daily, glucosamine, Synthroid, magnesium oxide, multivitamin, and Coenzyme Q10. She will follow up with Dr. De La Rosa at the scheduled time. She was discharged from our hospital in stable condition with explicit drug and followup care. SARAH/KATHRYN DR: Nisreen TID: [id number] CC: NEREIDA DE LA ROSA MD
== END 2021-03-24 11:20 | disposition home or self-care (01) ==
LOC: ER 09:17 → INTOOBSV 11:24 → ICU 11:24
PROVIDERS: ADMIT Hospitalist; ATTEND Hospitalist
DX: I48.0 Paroxysmal atrial fibrillation (principal); E03.9 Hypothyroidism, unspecified; I10 Essential (primary) hypertension; M81.0 Age-related osteoporosis without current pathological fracture; Z20.822 Contact with and (suspected) exposure to COVID-19; Z79.82 Long term (current) use of aspirin; Z79.899 Other long term (current) drug therapy; Z90.49 Acquired absence of other specified parts of digestive tract; Z98.84 Bariatric surgery status; Z90.89 Acquired absence of other organs; Z79.01 Long term (current) use of anticoagulants
CPT/HCPCS: 36415; 71045; 80053; 81001; 84484; 85025; 87426; 93005; 96361; 96365; 96366; 96376; 99285; G0378; J3490; J7030; U0003; G0379

== ENCOUNTER 2021-12-10 07:10 | Emergency (ER) | payer MEDICARE, OTHER ==
[~2021-12-10] VITALS: Ht 149.9 cm; Wt 63.6 kg
[~2021-12-10 07:10] MED LIST changes: +ASPI-630 PO; +CHOL500021 PO; +DILT180T7 PO; +FERR236T2 PO; +FURO20TA3 PO; +GLUC-11 PO; +MAGN400C PO
[2021-12-10] MEDS ORDERED: dilTIAZem VIAL 125 MG in IV NORMAL SALINE 100ML 100 ML IV PRN (07:30)
--- NOTE | 2021-12-10 07:33 | EKG ---
[address] [address] Test Date: 2021-12-10 Test Time: 07:17:11 Pat Name: RAMBO ROBERTSON Department: Room: Gender: F Reference Archivist: DAVONTE : 1940 Requested By: AMERICO BUNN Order Number: [id number] Reading MD: Devonte Cleveland Measurements Intervals [place] Rate: 145 P: [place]: QRS: -14 QRSD: 76 T: 103 QT: 290 QTc: 453 Interpretive Statements ATRIAL FIBRILLATION WITH RVR LEFTWARD AXIS QRS(T) CONTOUR ABNORMALITY CONSIDER ANTEROSEPTAL MYOCARDIAL DAMAGE T ABNORMALITY IN HIGH LATERAL LEADS ABNORMAL ECG Electronically Signed On 12-11-2021 17:13:09 CDT by Devonte Cleveland
--- NOTE | 2021-12-10 07:59 | RAD ---
AP chest. HISTORY: Atrial fibrillation AP view was taken of the chest. Lungs are clear. Heart is normal in size. There is no effusion. There is an atrial appendage device. IMPRESSION: 1. No acute chest disease. Electronically signed by: Montrell Caraballo MD (12/10/2021 7:57 AM) [id number]
[2021-12-10] MEDS ORDERED: dilTIAZem 25 MG/5 ML VIAL IVP ONE (08:00)
[2021-12-10 08:15] LABS: BASO % 1 % (0-3); EOS # 0.3 x10^3/uL (0.0-0.7); EOS % 5 % (0-3); HEMATOCRIT 41.5 % (36.0-47.0); HEMOGLOBIN 13.6 g/dL (12.0-15.5); LYMPH # 1.6 x10^3/uL (1.0-4.8); LYMPH % 25 % (24-48); MEAN CORPUSCULAR HEMOGLOBIN 32 pg (25-35); MEAN CORPUSCULAR HGB CONC 33 g/dL (31-37); MEAN CORPUSCULAR VOLUME 98 fL (79-100); MONO # 0.5 x10^3/uL (0.0-1.1); MONO % 8 % (0-9); NEUT # 3.8 x10^3uL (1.8-7.7); NEUT % 61 % (31-73); PLATELET COUNT 244 x10^3/uL (140-400); RED BLOOD COUNT 4.25 x10^6/uL (3.50-5.40); RED CELL DISTRIBUTION WIDTH 13.1 % (11.5-14.5); WHITE BLOOD COUNT 6.3 x10^3/uL (4.0-11.0)
[2021-12-10 08:25] LABS: CALCIUM 9.1 mg/dL (8.5-10.1); CREATININE 0.8 mg/dL (0.6-1.0); GFR 68.7; POTASSIUM 4.4 mmol/L (3.5-5.1)
[2021-12-10 08:37] LABS: ALBUMIN 3.4 g/dL (3.4-5.0); ALBUMIN/GLOBULIN RATIO 1.1 (1.0-1.7); TOTAL BILIRUBIN 0.7 mg/dL (0.2-1.0); TOTAL PROTEIN 6.5 g/dL (6.4-8.2)
[2021-12-10 09:20] VITALS: BP_DIAS 56
[2021-12-10 10:30] VITALS: BP_SYST 98
--- NOTE | 2021-12-10 10:36 | PHYS DOC ---
Past History Past Medical History: A-Fib, Other Additional Past Medical Histor: osteoporosis Past Surgical History: Appendectomy, Cholecystectomy, Gastric Bypass, Tonsillectomy, Other Additional Past Surgical Histo: partial mastectomy, cardiac ablation, watchman Alcohol Use: None Drug Use: None Adult General Chief Complaint Chief Complaint: Palpitations HPI HPI Patient presents with complaint of palpitations that began at approximately 5 AM. Patient states he feels mildly short of breath with these palpitations. Patient denies any chest pain at any time. Patient with a history of atrial fibrillation in the past with ablation [address] [facility]. Patient has been taking her Cardizem daily as scheduled. Patient is on aspirin every day as well but no other anticoagulation. Review of Systems Review of Systems Constitutional: Denies fever or chills [] Eyes: Denies change in visual acuity, redness, or eye pain [] HENT: Denies nasal congestion or sore throat [] Respiratory: Denies cough or shortness of breath [] Cardiovascular: Palpitations, no chest pain GI: Denies abdominal pain, nausea, vomiting, bloody stools or diarrhea [] : Denies dysuria or hematuria [] Musculoskeletal: Denies back pain or joint pain [] Integument: Denies rash or skin lesions [] Neurologic: Denies headache, focal weakness or sensory changes [] Endocrine: Denies polyuria or polydipsia [] All other systems were reviewed and found to be within normal limits, except as documented in this note. Current Medications Current Medications Current Medications Medications (Trade) Dose Ordered Sig/Mingo Start Time Stop Time Status Last Admin Dose Admin Diltiazem HCl (Cardizem Iv Push) 10 mg 1X ONCE 12/10/21 08:00 12/10/21 08:04 DC 12/10/21 08:04 10 MG Diltiazem HCl 125 mg/Sodium Chloride 125 ml @ 5 mls/hr CONT PRN 12/10/21 07:30 12/10/21 08:18 5 MLS/HR Allergies Allergies Allergies Coded Allergies Type Severity Reaction Last Updated Verified No Known Drug Allergies 05/27/19 No Physical Exam Physical Exam Constitutional: Well developed, well nourished, no acute distress, non-toxic appearance. [] HENT: Normocephalic, atraumatic, bilateral external ears normal, oropharynx moist, no oral exudates, nose normal. [] Eyes: PERRLA, EOMI, conjunctiva normal, no discharge. [] Neck: Normal range of motion, no tenderness, supple, no stridor. [] Cardiovascular: Tachycardia, irregularly irregular rate, no murmur Lungs & Thorax: Bilateral breath sounds clear to auscultation [] Abdomen: Bowel sounds normal, soft, no tenderness, no masses, no pulsatile masses. [] Skin: Warm, dry, no erythema, no rash. [] Back: No tenderness, no CVA tenderness. [] Extremities: No tenderness, no cyanosis, no clubbing, ROM intact, no edema. [] Neurologic: Alert and oriented X 3, normal motor function, normal sensory function, no focal deficits noted. [] Psychologic: Affect normal, judgement normal, mood normal. [] Current Patient Data Vital Signs Vital Signs Date Time Temp Pulse Resp B/P (MAP) Pulse Ox O2 Delivery O2 Flow Rate FiO2 12/10/21 08:04 148 114/50 12/10/21 07:16 98.0 20 97 Room Air Lab Results Laboratory Tests Test 12/10/21 07:40 White Blood Count 6.3 x10^3/uL (4.0-11.0) Red Blood Count 4.25 x10^6/uL (3.50-5.40) Hemoglobin 13.6 g/dL (12.0-15.5) Hematocrit 41.5 % (36.0-47.0) Mean Corpuscular Volume 98 fL (79-100) Mean Corpuscular Hemoglobin 32 pg (25-35) Mean Corpuscular Hemoglobin Concent 33 g/dL (31-37) Red Cell Distribution Width 13.1 % (11.5-14.5) Platelet Count 244 x10^3/uL (140-400) Neutrophils (%) (Auto) 61 % (31-73) Lymphocytes (%) (Auto) 25 % (24-48) Monocytes (%) (Auto) 8 % (0-9) Eosinophils (%) (Auto) 5 % (0-3) H Basophils (%) (Auto) 1 % (0-3) Neutrophils # (Auto) 3.8 x10^3uL (1.8-7.7) Lymphocytes # (Auto) 1.6 x10^3/uL (1.0-4.8) Monocytes # (Auto) 0.5 x10^3/uL (0.0-1.1) Eosinophils # (Auto) 0.3 x10^3/uL (0.0-0.7) Basophils # (Auto) 0.0 x10^3/uL (0.0-0.2) Sodium Level 140 mmol/L (136-145) Potassium Level 4.4 mmol/L (3.5-5.1) Chloride Level 103 mmol/L (98-107) Carbon Dioxide Level 28 mmol/L (21-32) Anion Gap 9 (6-14) Blood Urea Nitrogen 19 mg/dL (7-20) Creatinine 0.8 mg/dL (0.6-1.0) Estimated GFR (Cockcroft-Gault) 68.7 BUN/Creatinine Ratio 24 (6-20) H Glucose Level 112 mg/dL (70-99) H Calcium Level 9.1 mg/dL (8.5-10.1) Total Bilirubin 0.7 mg/dL (0.2-1.0) Aspartate Amino Transferase (AST) 20 U/L (15-37) Alanine Aminotransferase (ALT) 28 U/L (14-59) Alkaline Phosphatase 128 U/L (46-116) H Troponin I High Sensitivity 25 ng/L (4-50) AH-Oep-H-Type Natriuretic Peptide 918 pg/mL (0-449) H Total Protein 6.5 g/dL (6.4-8.2) Albumin 3.4 g/dL (3.4-5.0) Albumin/Globulin Ratio 1.1 (1.0-1.7) EKG EKG Initial EKG ECC physician read, atrial fibrillation with RVR, no specific ST changes Repeat EKG with sinus rhythm rate 98. No ST changes [] Radiology/Procedures Radiology/Procedures [] Heart Score C/O Chest Pain: No Risk Factors: Risk Factors: DM, Current or recent (<one month) smoker, HTN, HLP, family history of CAD, obesity. Risk Scores: Risk Factors: DM, Current or recent (<one month) smoker, HTN, HLP, family history of CAD, obesity. Course & Med Decision Making Course & Med Decision Making Patient with atrial fibrillation with RVR on arrival. Cardizem bolus and drip initiated. Rate well controlled. Patient with full labs work-up to be pursued 1033-patient with negative cardiac enzymes, chest x-ray without any overt CHF. All labs of the patient baseline with negative cardiac enzymes. Patient's rate remained well controlled and EP cardiology at [facility] contacted and possible transfer being arranged. While this was being arranged the patient spontaneously converted to a sinus rhythm. Patient has remained in sinus rhythm since that time. Patient felt to be stable for discharge home given the spontaneous conversion. Patient's EP cardiology clinic contacted Joy Quiroga NP, and the patient will be contacted for close outpatient follow-up with EP cardiology clinic within the week. Return precautions discussed Dragon Disclaimer Dragon Disclaimer This electronic medical record was generated, in whole or in part, using a voice recognition dictation system. Departure Departure: Impression: Primary Impression: Atrial fibrillation with RVR Disposition: HOME / SELF CARE / HOMELESS Condition: IMPROVED Referrals: NEREIDA DE LA ROSA MD (PCP) Patient Instructions: Atrial Fibrillation Additional Instructions: Return for any return of symptoms, any worsening symptoms or other concerns. Contact your primary cardiology clinic for close outpatient follow-up AMERICO BUNN MD December 10, 2021 10:36
--- NOTE | 2021-12-10 10:46 | EKG ---
[address] [address] Test Date: 2021-12-10 Test Time: 10:17:32 Pat Name: RAMBO ROBERTSON Department: Room: Gender: F Procedure Manager: DAVONTE : 1940 Requested By: AMERICO BUNN Order Number: [id number] Reading MD: Devonte Cleveland Measurements Intervals [place] Rate: 98 P: 66 ND: 202 QRS: -10 QRSD: 74 T: 67 QT: 348 QTc: 446 Interpretive Statements SINUS RHYTHM ATRIAL PREMATURE COMPLEX(ES) LEFTWARD AXIS Electronically Signed On 12-11-2021 17:12:25 CDT by Devonte Cleveland
== END 2021-12-10 11:09 | disposition home or self-care (01) ==
LOC: ER 07:10
DX: I48.20 Chronic atrial fibrillation, unspecified (principal); Z98.84 Bariatric surgery status
CPT/HCPCS: 36415; 71045; 80053; 83880; 84484; 85025; 93005; 96365; 96366; 96376; 99285; J3490

== ENCOUNTER 2021-12-20 10:49 | Emergency (ER) | payer MEDICARE, OTHER ==
[~2021-12-20] VITALS: Ht 149.9 cm; Wt 63.6 kg
--- NOTE | 2021-12-20 11:16 | PHYS DOC ---
Past History Past Medical History: A-Fib, Other Additional Past Medical Histor: osteoporosis Past Surgical History: Appendectomy, Cholecystectomy, Gastric Bypass, Tonsillectomy, Other Additional Past Surgical Histo: partial mastectomy, cardiac ablation, watchman Alcohol Use: None Drug Use: None General Adult EDM: Chief Complaint: Palpitations HPI: HPI: 81-year-old female presents with atrial fibrillation. The patient can feel when her rate gets out of control. She has felt like its been faster this morning. She did take her Cardizem dose this morning as well as her 200 of amiodarone. This is a decrease from taking 400 of amiodarone twice a day for the last 1 we ek. This was directed by her sharepoint specialist because she had an episode of A. fib about 1 week ago. Patient denies chest pain or diaphoresis. She has a history of ablation. Over the last few months, she has had intermittent episodes of increased rate that self resolved over a few hours. Patient denies fever or chills. She has no other complaints at this time. Review of Systems: Review of Systems: Constitutional: Denies fever or chills Eyes: Denies change in visual acuity HENT: Denies nasal congestion or sore throat Respiratory: Denies cough or shortness of breath Cardiovascular: Increased rate atrial fibrillation GI: Denies abdominal pain, nausea, vomiting, bloody stools or diarrhea : Denies dysuria Musculoskeletal: Denies back pain or joint pain Integument: Denies rash Neurologic: Denies headache, focal weakness or sensory changes Endocrine: Denies polyuria or polydipsia Lymphatic: Denies swollen glands Psychiatric: Denies depression or anxiety Allergies: Allergies: Allergies Coded Allergies Type Severity Reaction Last Updated Verified No Known Drug Allergies 05/27/19 No Physical Exam: PE: Constitutional: Well developed, well nourished, no acute distress, non-toxic appearance. [] HENT: Normocephalic, atraumatic, bilateral external ears normal, oropharynx moist, no oral exudates, nose normal. [] Eyes: PERRLA, EOMI, conjunctiva normal, no discharge. [] Neck: Normal range of motion, no tenderness, supple, no stridor. [] Cardiovascular: Heart rate 130 irregular rhythm, no murmur [] Lungs & Thorax: Bilateral breath sounds clear to auscultation [] Abdomen: Bowel sounds normal, soft, no tenderness, no masses, no pulsatile masses. [] Skin: Warm, dry, no erythema, no rash. [] Back: No tenderness, no CVA tenderness. [] Extremities: No tenderness, no cyanosis, no clubbing, ROM intact, no edema. [] Neurologic: Alert and oriented X 3, normal motor function, normal sensory function, no focal deficits noted. [] Psychologic: Affect normal, judgement normal, mood normal. [] Current Patient Data: Vital Signs: Vital Signs Date Time Temp Pulse Resp B/P (MAP) Pulse Ox O2 Delivery O2 Flow Rate FiO2 12/20/21 11:03 114 20 114/75 (88) 97 EKG: EKG: Irregular rhythm, rate 130, leftward axis, no ST elevation or depression, atrial fibrillation. [] Radiology/Procedures: Radiology/Procedures: [] Heart Score: C/O Chest Pain: No Risk Factors: Risk Factors: DM, Current or recent (<one month) smoker, HTN, HLP, family history of CAD, obesity. Risk Scores: Score 0 - 3: 2.5% MACE over next 6 weeks - Discharge Home Score 4 - 6: 20.3% MACE over next 6 weeks - Admit for Clinical Observation Score 7 - 10: 72.7% MACE over next 6 weeks - Early Invasive Strategies Course & Med Decision Making: Course & Med Decision Making Pertinent Labs and Imaging studies reviewed. (See chart for details) The patient's labs are unremarkable except for a slightly elevated BUN. Her troponin is negative. Her EKG does not show ST elevation. I have given the patient a liter of normal saline. The patient's rate has improved to the upper 80s and low 90s. She is still in atrial fibrillation. I attempted to call the cardiology office but did not get a hold of anyone. They did not call me back. I talked the patient about potential options. She does not wish to be admitted. We agreed that we would try a single dose of amiodarone IV and then she will be discharged home. If she has further episodes where her heart rate increases above 110, she may need to come back to the hospital and be admitted. The patient is comfortable with this plan. She is stable for discharge at this time. [] Dragon Disclaimer: Dragon Disclaimer: This electronic medical record was generated, in whole or in part, using a voice recognition dictation system. Departure Departure: Impression: Primary Impression: Atrial fibrillation with RVR Disposition: HOME / SELF CARE / HOMELESS Condition: STABLE Referrals: NEREIDA DE LA ROSA MD (PCP) Patient Instructions: Atrial Fibrillation, [id number] HERNAN SAHA DO December 20, 2021 11:16
[2021-12-20 11:24] LABS: BASO % 1 % (0-3); EOS # 0.2 x10^3/uL (0.0-0.7); EOS % 4 % (0-3); HEMOGLOBIN 12.4 g/dL (12.0-15.5); LYMPH # 2.2 x10^3/uL (1.0-4.8); LYMPH % 35 % (24-48); MEAN CORPUSCULAR HEMOGLOBIN 32 pg (25-35); MEAN CORPUSCULAR HGB CONC 33 g/dL (31-37); MEAN CORPUSCULAR VOLUME 98 fL (79-100); MONO # 0.6 x10^3/uL (0.0-1.1); MONO % 9 % (0-9); NEUT # 3.2 x10^3uL (1.8-7.7); NEUT % 51 % (31-73); PLATELET COUNT 222 x10^3/uL (140-400); RED BLOOD COUNT 3.88 x10^6/uL (3.50-5.40); WHITE BLOOD COUNT 6.2 x10^3/uL (4.0-11.0)
--- NOTE | 2021-12-20 11:28 | RAD ---
Single AP view of the chest. Comparison: 12/10/2021. Indication: Chest pain Findings: Implanted loop recorder device and watchman device are seen. Stable right breast surgical clips. The heart is enlarged but stable. There is no pneumothorax or effusion. No air space or interstitial dis ease. Impression: 1. No acute cardiopulmonary process. Electronically signed by: Christopher Zimmer MD (12/20/2021 11:25 AM) [id number]
[2021-12-20] MEDS ORDERED: IV NORMAL SALINE 1,000ML 1,000 ML IV ONE (11:30)
[2021-12-20 11:35] LABS: CALCIUM 8.4 mg/dL (8.5-10.1); CREATININE 0.9 mg/dL (0.6-1.0); GFR 59.9; POTASSIUM 4.1 mmol/L (3.5-5.1)
[2021-12-20 11:41] LABS: ALBUMIN 3.1 g/dL (3.4-5.0); ALBUMIN/GLOBULIN RATIO 1.1 (1.0-1.7); TOTAL BILIRUBIN 0.7 mg/dL (0.2-1.0)
[2021-12-20] MEDS ORDERED: AMIODARONE 150 MG in IV DEXTROSE 5% 100 ML IVP ONE (13:45)
[2021-12-20] MEDS ORDERED: AMIODARONE 150 MG/3 ML VIAL IVP ONE (14:10)
[2021-12-20] MEDS ORDERED: IV DEXTROSE 5% 100 ML IV ONE (14:10)
[2021-12-20 14:14] VITALS: BP 106/55
== END 2021-12-20 15:04 | disposition home or self-care (01) ==
LOC: ER 10:49
DX: I48.20 Chronic atrial fibrillation, unspecified (principal); Z98.84 Bariatric surgery status
CPT/HCPCS: 36415; 71045; 80053; 84484; 85025; 93005; 96361; 96365; 99285; J0282; J7030